=== PATIENT | female | born 1950 | race Caucasian/White ===

== ENCOUNTER 2020-07-15 13:27 | Inpatient (IN) | payer MEDICARE, MEDICAID ==
[~2020-07-15] VITALS: Ht 162.6 cm; Wt 110.3 kg
[2020-07-15 14:11] VITALS: BP 112/77
[2020-07-15] MEDS ORDERED: METHYL SALICYLATE/MENTHOL TOPICAL OINTMENT 57GM TUBE. TP PRN (14:30)
[2020-07-15] MEDS ORDERED: MAG HYDROX/AL HYDROX/SIMETH 30 ML ORAL.SUSP PO PRN ×2 (14:30→17:00)
[2020-07-15] MEDS ORDERED: MAGNESIUM HYDROXIDE 2,400 MG/30 ML ORAL.SUSP. PO PRN (14:30)
--- NOTE | 2020-07-15 14:46 | NUR ---
Admission Note with Justification for [facility] for protective oversight for emergency stabilization of acute psychiatric crisis. Pt admitted from: direct admit from [facility] Mode of arrival: Secure Transport Accompanied By: [facility] Staff Precipitating behaviors that initiated intake and admission: it was reported that patient was yelling out for help, doing less than physically capable, not sleeping, sliding herself to the edge of the chair and putting herself on the floor, making false accusations about intermediate to her guardian over the phone. She has made statements that she wants "to give up". She is verbally abusive and demanding, belligerent and has increased agitation and anxiety. Description of failure of out patient attempts at stabilization in previous setting list behavior and medication trials: patient had been seen by the psychologist social, decreased Lexapro dose, increased Depakote frequency. Behaviors and assessment findings upon admission: patient arrived via facility transportation. She presented in our registration department and appeared about to fall out of her wheelchair. Four [facility] staff members assisted patient back into chair. Clifford lift x3 staff members to transfer patient from wheelchair to bed when she arrived on unit. Broda chair ordered. Patient is very soft spoken; almost a whisper when answering questions. Patient a/o x4. She states she is here "because she got angry". This RN and FRAME BUILDER inspected patients skin. Her matheus area is reddened and damp. Her skin is intact. She is pale, however her face appears red with dry patches. She is morbidly obese (BMI 40.8) and seems to have limited motion (on her right side) in the bed when turning for brief change. (unsure if she truly has limited motion or if it is a behavior). Her face does not appear symmetrical, the right side droops somewhat and she seems weaker on that side of her body. She was observed coughing upon arrival. Patient appears calm, possibly sedated prior to arrival. Facility transportation stated she had not been given anything. Patient stated she had not eaten lunch, box lunch was ordered and served. Vital signs obtained and belongings inventoried. Patient was observed sleeping in bed with the half eaten sandwich on her stomach about 30 minutes after arrival. Plan: Admit for protective oversight for adjustment and stabilization of medications, behaviors and mood. Intense treatment regimen including groups, medication adjustments, therapy, consistent regimen for ADL's, self care, and sleep hygiene. Daily monitoring by Inpatient staff, Psychiatry, and Medical Physician.
[2020-07-15] MEDS ORDERED: ATOR20TA58 PO (16:57)
[2020-07-15] MEDS ORDERED: CALC200T3 PO (16:57)
[2020-07-15] MEDS ORDERED: LORA-254 PO (16:57)
[2020-07-15] MEDS ORDERED: HALO10TA PO (16:57)
[2020-07-15] MEDS ORDERED: GUAI5SYR PO (16:57)
[2020-07-15] MEDS ORDERED: METO50TA6 PO (16:57)
[2020-07-15] MEDS ORDERED: METH113C6 TP (16:57)
[2020-07-15] MEDS ORDERED: PHEN26CR2 RC (16:57)
[2020-07-15] MEDS ORDERED: MAGN24003 PO (16:57)
[2020-07-15] MEDS ORDERED: MAG-111 PO (16:57)
[2020-07-15] MEDS ORDERED: WARF6TAB47 PO (16:57)
[2020-07-15] MEDS ORDERED: HALO5TAB PO (16:57)
[2020-07-15] MEDS ORDERED: DOCU100C28 PO (16:57)
[2020-07-15] MEDS ORDERED: CARB-116 OT (16:57)
[2020-07-15] MEDS ORDERED: OXYB10TA26 PO (16:57)
[2020-07-15] MEDS ORDERED: ONDA-84 PO (16:57)
[2020-07-15] MEDS ORDERED: ESCITALOPRAM OX10 MG PO (16:57)
[2020-07-15] MEDS ORDERED: METF-658 PO (16:57)
[2020-07-15] MEDS ORDERED: TRIA15OI TP (16:57)
[2020-07-15] MEDS ORDERED: DIVA500T2 PO (16:57)
[2020-07-15] MEDS ORDERED: ACET325T9 PO (16:57)
[2020-07-15] MEDS ORDERED: GLYC113C2 TP (16:57)
[2020-07-15] MEDS ORDERED: PEG15DRO4 OU (16:57)
[2020-07-15] MEDS ORDERED: WARFARIN 6 MG TABLET. PO SCH (17:00)
[2020-07-15] MEDS ORDERED: CALCIUM CARBONATE 500 MG TAB.CHEW PO PRN (17:00)
[2020-07-15] MEDS ORDERED: CARBAMIDE PEROXIDE 6.5% OTIC SOLUTION 15ML BOTTLE. AU PRN (17:00)
[2020-07-15] MEDS ORDERED: MENTHOL TP PRN (17:00)
[2020-07-15] MEDS ORDERED: MAGNESIUM HYDROXIDE PO PRN (17:00)
[2020-07-15] MEDS ORDERED: ACETAMINOPHEN 325 MG TABLET PO PRN (17:00)
[2020-07-15] MEDS ORDERED: METHYL SALICYLATE TP PRN (17:00)
[2020-07-15] MEDS ORDERED: guaiFENesin DM 200MG/20MG 10 ML SYRUP PO PRN (17:00)
[2020-07-15] MEDS ORDERED: DOCUSATE SODIUM 100 MG CAPSULE PO PRN (17:00)
[2020-07-15] MEDS ORDERED: TRIAMCINOLONE ACETONIDE 0.1% TOPICAL OINTMENT 15GM TUBE. TP PRN (17:00)
[2020-07-15] MEDS ORDERED: MINERAL OIL/PETROLATUM TOPICAL CREAM 113GM JAR. TP PRN (17:15)
[2020-07-15] MEDS ORDERED: POLYVINYL ALCOHOL/POVIDONE/PF OPHTH SOLUTION DROPERETTE. OU PRN (17:30)
[2020-07-15] MEDS ORDERED: ONDANSETRON ODT 4 MG TAB.RAPDIS PO PRN (17:30)
[2020-07-15] MEDS ORDERED: PHENYLEPH/MINERAL OIL/PETROLAT RECTAL OINTMENT TUBE. RC PRN (17:30)
[2020-07-15] MEDS: LORazepam 1 MG TABLET PO SCH (18:15)
[2020-07-15] MEDS: metFORMIN XR 500 MG TAB.ER.24H PO SCH (18:15)
--- NOTE | 2020-07-15 18:43 | NUR ---
Patient stated she is not full from dinner. 1700 medications given in pudding per patient request. Patient continues to ask for more food. Advised patient that snack will be served on shift boss before bed.
--- NOTE | 2020-07-15 18:46 | NUR ---
Pharmacy is checking PT/INR. They said do not give warfarin, until they advise.
[2020-07-15] MEDS: HALOPERIDOL 5 MG TABLET PO SCH (20:22)
[2020-07-15] MEDS: DIVALPROEX SODIUM 250 MG TABLET.DR. PO SCH (20:22)
[2020-07-15] MEDS: METOPROLOL TART IMMED RELEASE 50 MG TABLET PO SCH (20:22)
[2020-07-15] MEDS: ATORVASTATIN CALCIUM 20 MG TABLET PO SCH (20:22)
[2020-07-15 20:29] LABS: BASO % 0 % (0-3); EOS # 0.1 x10^3/uL (0.0-0.7); EOS % 2 % (0-3); HEMATOCRIT 42.6 % (36.0-47.0); HEMOGLOBIN 13.9 g/dL (12.0-15.5); LYMPH # 3.4 x10^3/uL (1.0-4.8); LYMPH % 52 % (24-48); MEAN CORPUSCULAR HEMOGLOBIN 28 pg (25-35); MEAN CORPUSCULAR HGB CONC 33 g/dL (31-37); MEAN CORPUSCULAR VOLUME 84 fL (79-100); MONO # 0.6 x10^3/uL (0.0-1.1); MONO % 9 % (0-9); NEUT # 2.5 x10^3uL (1.8-7.7); NEUT % 38 % (31-73); PLATELET COUNT 185 x10^3/uL (140-400); RED BLOOD COUNT 5.04 x10^6/uL (3.50-5.40); RED CELL DISTRIBUTION WIDTH 16.5 % (11.5-14.5); WHITE BLOOD COUNT 6.6 x10^3/uL (4.0-11.0)
[2020-07-15 20:38] LABS: ALBUMIN 2.5 g/dL (3.4-5.0); ALBUMIN/GLOBULIN RATIO 0.6 (1.0-1.7); CALCIUM 8.9 mg/dL (8.5-10.1); CREATININE 0.9 mg/dL (0.6-1.0); GFR 62.1; MAGNESIUM 1.6 mg/dL (1.8-2.4); POTASSIUM 3.5 mmol/L (3.5-5.1); TOTAL BILIRUBIN 0.2 mg/dL (0.2-1.0); TOTAL PROTEIN 6.4 g/dL (6.4-8.2)
--- NOTE | 2020-07-15 21:50 | PDOC ---
Exam Note: Win Note: Please also refer to the separate dictated note~for this date of service dictated separately.~Patient seen individually. Discussed the patient with Nursing staff reviewed the chart.~Reviewed interim history and current functioning. Reviewed vital signs,~Labs/ Radiology~and current medications noted below. Continue current treatment with the changes noted in the dictated addendum note Assessment: Vital Signs/I&O: Vital Signs Date Time Temp Pulse Resp B/P (MAP) Pulse Ox O2 Delivery O2 Flow Rate FiO2 07/15/20 21:42 97.9 94 07/15/20 20:22 79 112/77 07/15/20 14:11 17 PRN oxygen Labs: Laboratory Tests Test 07/15/20 20:01 White Blood Count 6.6 x10^3/uL (4.0-11.0) Red Blood Count 5.04 x10^6/uL (3.50-5.40) Hemoglobin 13.9 g/dL (12.0-15.5) Hematocrit 42.6 % (36.0-47.0) Mean Corpuscular Volume 84 fL (79-100) Mean Corpuscular Hemoglobin 28 pg (25-35) Mean Corpuscular Hemoglobin Concent 33 g/dL (31-37) Red Cell Distribution Width 16.5 % (11.5-14.5) H Platelet Count 185 x10^3/uL (140-400) Neutrophils (%) (Auto) 38 % (31-73) Lymphocytes (%) (Auto) 52 % (24-48) H Monocytes (%) (Auto) 9 % (0-9) Eosinophils (%) (Auto) 2 % (0-3) Basophils (%) (Auto) 0 % (0-3) Neutrophils # (Auto) 2.5 x10^3uL (1.8-7.7) Lymphocytes # (Auto) 3.4 x10^3/uL (1.0-4.8) Monocytes # (Auto) 0.6 x10^3/uL (0.0-1.1) Eosinophils # (Auto) 0.1 x10^3/uL (0.0-0.7) Basophils # (Auto) 0.0 x10^3/uL (0.0-0.2) Sodium Level 140 mmol/L (136-145) Potassium Level 3.5 mmol/L (3.5-5.1) Chloride Level 104 mmol/L (98-107) Carbon Dioxide Level 34 mmol/L (21-32) H Anion Gap 2 (6-14) L Blood Urea Nitrogen 16 mg/dL (7-20) Creatinine 0.9 mg/dL (0.6-1.0) Estimated GFR (Cockcroft-Gault) 62.1 BUN/Creatinine Ratio 18 (6-20) Glucose Level 121 mg/dL (70-99) H Calcium Level 8.9 mg/dL (8.5-10.1) Magnesium Level 1.6 mg/dL (1.8-2.4) L Total Bilirubin 0.2 mg/dL (0.2-1.0) Aspartate Amino Transferase (AST) 10 U/L (15-37) L Alanine Aminotransferase (ALT) 11 U/L (14-59) L Alkaline Phosphatase 54 U/L (46-116) Total Protein 6.4 g/dL (6.4-8.2) Albumin 2.5 g/dL (3.4-5.0) L Albumin/Globulin Ratio 0.6 (1.0-1.7) L Current Medications: Meds: Current Medications Medications (Trade) Dose Ordered Sig/Moris Route PRN Reason Start Time Stop Time Status Last Admin Dose Admin Atorvastatin Calcium (Lipitor) 20 mg QHS PO 07/15/20 21:00 07/15/20 20:22 Lorazepam (Ativan) 1 mg BIDWMEALS PO 07/15/20 17:00 07/15/20 18:15 Metformin HCl (Glucophage Xr) 500 mg DAILYWSUP PO 07/15/20 17:00 07/15/20 18:15 Metoprolol Tartrate (Lopressor) 50 mg BID PO 07/15/20 21:00 07/15/20 20:22 Divalproex Sodium (Depakote) 500 mg TID PO 07/15/20 21:00 07/15/20 20:22 Haloperidol (Haldol) 10 mg QHS PO 07/15/20 21:00 07/15/20 20:22 I have reviewed the current psychotropics carefully including drug interactions. Risk benefit ratio favors no change other than as noted in my dictated progress note. Diagnosis: Problems: (1) Schizophrenia, chronic condition with acute exacerbation GAVIN LUCAS MD Jul 15, 2020 21:50
--- NOTE | 2020-07-15 23:14 | NUR ---
Nursing Note: Location of Patient during Assessment: Pt withdrawn to room, lying in bed with eyes closed. Behaviors Mood and Affect this shift: Pt calm and cooperative, speaking in a low whisper but answers questions appropriately. Medication Compliant: Pt compliant with medications administered whole and floated in pudding. Assessment Compliant: Pt cooperative and compliant with assessment and cares. Response After Interventions: Pt calm, lying in bed with eyes closed at this time.
[2020-07-16 07:08] VITALS: BP 111/75
[2020-07-16 07:12] LABS: BACTERIA,URINE FEW /HPF (0-FEW); BILIRUBIN,URINE NEG (NEG); CLARITY,URINE HAZY; COLOR,URINE YELLOW; GLUCOSE,URINE NEG (NEG); NITRITE,URINE NEG (NEG); SQUAMOUS EPITHELIAL CELL,UR FEW /LPF; UROBILINOGEN,URINE 0.2 mg/dL (0.2 mg/dL); WBC,URINE >40 /HPF (0-4)
--- NOTE | 2020-07-16 08:55 | NUR ---
ACTIVITY THERAPY ASSESSMENT completed based on notes, observation, and interview. Pt was asleep in her bed and AT woke pt up. Pt was pleasant with AT and said she would answer questions if AT would sit down. AT sat down and started the assessment. Pt is soft spoken while communicating and at some points starts to fall asleep. Pt was calm, controlled, and pleasant during time of the assessment. Pt said that she likes bingo, cards, archery, and darts. Pt said that she doesn't like reading or coloring. Pt said that she has a son that is 34 and talked about numerous grandchildren. Pt said that her son got on her birthday which was yesterday [birth year]. AT tried asking pt what she likes to do with her family and it this point is was a bit hard to redirect her as she continued to talk about many grandchildren. Pt struggles to collect thoughts but said that she to have family reunions. AT asked what she likes to do with her friends she said that she didn't have any because she has been locked up for years. AT asked where she had been locked up and pt said mental institutions and homes. Pt didn't report any stress at this time and says that she handles it well. AT asked if the pt knew where she was and she said the [facility].' AT then asked why she is here and pt said that it is because she can't walk and falls out of her chair. Pt said that she never falls out of her chair on purpose. Pt was able to identify the year as 2019 and her year of [birth year].Pt said that she came from [facility] before admission. Pt said that she can hear and see okay but just struggles to walk. AT asked if she had anymore to share and she said that she had gotten into an accident where she injured her head and back. Initial goal is aimed to increase time management and self-esteem development skills. Pt will participate in at least two individual Activity Therapy sessions per week.
[2020-07-16 09:17] LABS: VAL ACID 68 mcg/mL (50-100)
[2020-07-16] MEDS: LORazepam 1 MG TABLET PO SCH ×2 (11:13→17:36)
[2020-07-16] MEDS: HALOPERIDOL 5 MG TABLET PO SCH ×3 (11:18→20:34)
[2020-07-16] MEDS: DIVALPROEX SODIUM 250 MG TABLET.DR. PO SCH ×3 (11:19→20:34)
[2020-07-16] MEDS: CITALOPRAM 20 MG TABLET. PO SCH (11:19)
[2020-07-16] MEDS: METOPROLOL TART IMMED RELEASE 50 MG TABLET PO SCH ×2 (11:19→20:35)
[2020-07-16] MEDS: OXYBUTYNIN CHLORIDE 5 MG TABLET PO SCH (11:19)
--- NOTE | 2020-07-16 11:56 | NUR ---
Morning medications were given at 1130 r/t this nurse being in treatment team until then. Will hold 1200 Haldol due to the close proximity of morning dose. Patient demanding (light on, door closed, bed up, bed down, etc.) and acting helpless. compliant with medications given floated in pudding. Held lorazepam r/t patients level of consciousness. She has been drowsy and sleeping most of the morning.
[2020-07-16 14:33] LABS: THYROID STIM HORMONE (TSH) 0.658 uIU/mL (0.358-3.740)
--- NOTE | 2020-07-16 15:24 | NUR ---
Pharmacy Warfarin Dosing Note S:Pharmacy consulted to assist with anticoagulation therapy started with target INR: 2 -3 O:MAHAD AHUJA is a 70 year old F with PRIOR CT/ PROPHYLAXIS LABS: Last INR: 3.7 Last HGB: 13.9 Last HCT: 42.6 Last PLT: 185 Last dose of Hold given on 07/15/20 at 1600 Previous Regimen: Vitamin K given: Drug Interaction Changes: Same Interacting Drug Ongoing Drug Interactions: A:INR Above desired Range. Target Range for this patient is: 2 -3 normally takes 6mg daily at home P: Warfarin dose: Hold Today at 1600 Bridge Therapy: None Next INR due 07/17/20 @ 0600 Pharmacy anticoagulation service will continue to follow. ALL TY [facility], 07/16/20 [id number]
[2020-07-16 16:30] VITALS: BP 113/80
[2020-07-16] MEDS: CHOLECALCIFEROL (VITAMIN D3) 50,000 UNIT CAPSULE PO SCH (17:36)
[2020-07-16] MEDS: metFORMIN XR 500 MG TAB.ER.24H PO SCH (17:36)
[2020-07-16] MEDS: ATORVASTATIN CALCIUM 20 MG TABLET PO SCH (20:34)
[2020-07-16] MEDS: MAGNESIUM OXIDE 400 MG TABLET PO SCH (20:34)
[2020-07-16] MEDS: CLOTRIMAZOLE 1% VAGINAL CREAM 45GM TUBE. VG SCH (20:35)
--- NOTE | 2020-07-16 21:56 | PDOC ---
Exam Note: Win Note: Please also refer to the separate dictated note~for this date of service dictated separately.~Patient seen individually. Discussed the patient with Nursing staff reviewed the chart.~Reviewed interim history and current functioning. Reviewed vital signs,~Labs/ Radiology~and current medications noted below. Continue current treatment with the changes noted in the dictated addendum note Assessment: Vital Signs/I&O: Vital Signs Date Time Temp Pulse Resp B/P (MAP) Pulse Ox O2 Delivery O2 Flow Rate FiO2 07/16/20 20:35 60 113/80 07/16/20 16:30 98.8 20 95 07/15/20 14:11 PRN oxygen I & O 07/15/20 07/15/20 07/16/20 15:00 23:00 07:00 Intake Total 240 ml Balance 240 ml Labs: Laboratory Tests Test 07/16/20 06:20 07/16/20 08:49 Urine Collection Type U cath Urine Color Yellow Urine Clarity Hazy Urine pH 5.5 Urine Specific [place] >=1.030 Urine Protein Neg (NEG-TRACE) Urine Glucose (UA) Neg mg/dL (NEG) Urine Ketones (Stick) Trace mg/dL (NEG) Urine Blood Neg (NEG) Urine Nitrite Neg (NEG) Urine Bilirubin Neg (NEG) Urine Urobilinogen Dipstick 0.2 mg/dL (0.2 mg/dL) Urine Leukocyte Esterase Trace (NEG) Urine RBC 1-2 /HPF (0-2) Urine WBC >40 /HPF (0-4) Urine Squamous Epithelial Cells Few /LPF Urine Transitional Epithelial Cells Few /LPF Urine Bacteria Few /HPF (0-FEW) Urine Mucus Slight /LPF Prothrombin Time 36.4 SEC (9.4-11.4) H Prothrombin Time INR 3.7 (0.9-1.1) H Valproic Acid Level 68 mcg/mL (50-100) Valproic Acid Last Dose Date 07/15/20 Valproic Acid Last Dose Time 2100 Current Medications: Meds: Current Medications Medications (Trade) Dose Ordered Sig/Moris Route PRN Reason Start Time Stop Time Status Last Admin Dose Admin Haloperidol (Haldol) 5 mg 0900,1200 PO 07/16/20 09:00 07/16/20 15:07 DC 07/16/20 11:18 Citalopram Hydrobromide (CeleXA) 20 mg DAILY PO 07/16/20 09:00 07/16/20 11:19 Oxybutynin Chloride (Ditropan) 10 mg DAILY PO 07/16/20 09:00 07/16/20 11:19 Warfarin Sodium (Coumadin Per Pharmacy) 1 each PRN DAILY PRN MC SEE COMMENTS 07/16/20 15:30 07/16/20 15:24 Vitamin D (Vitamin D3) 50,000 unit WEEKLY PO 07/16/20 16:30 07/16/20 17:36 Magnesium Oxide (Magnesium Oxide) 400 mg BID PO 07/16/20 21:00 07/16/20 20:34 Clotrimazole (Mycelex-7) 1 maricarmen HS VG 07/16/20 21:00 07/24/20 21:00 07/16/20 20:35 I have reviewed the current psychotropics carefully including drug interactions. Risk benefit ratio favors no change other than as noted in my dictated progress note. Diagnosis: Problems: (1) Schizophrenia, chronic condition with acute exacerbation GAVIN LUCAS MD Jul 16, 2020 21:56
--- NOTE | 2020-07-16 22:51 | HP ---
ADMIT DATE: 07/15/2020 PSYCHIATRIC ADMISSION HISTORY/EVALUATION This late entry date of service 07/15/2020 covers elements not covered in my initial note. SUBJECTIVE: I met with the patient evening of 07/15/2020 and previously discussed with nursing staff and Araceli Espinoza, international exchange coordinator. IDENTIFYING DATA: The patient is a 70-year-old female referred to us from [facility] by Dr. Dalton Haskins, her primary care physician and JORDEN Chapa psychiatric nurse practitioner on account of an acute exacerbation of her schizoaffective disorder, bipolar type, with psychotic features. The patient reportedly has had marked insomnia. She is yelling out for help repeatedly, physically doing less for herself than she is capable of. She is sliding herself to the edge of the chair and putting herself on the floor. She is making false accusations about facility to her guardian. She is demanding, verbally abusive, agitated, anxious, stated she wants to "give up." The patient has failed outpatient psychiatric interventions. Behaviors deemed dangerous, unmanageable at the facility and referred for inpatient psychiatric stabilization. CHIEF COMPLAINT: "I don't put myself on the floor." The patient was initially talking in whispers, difficult to hear her. Later, she did better. HISTORY OF PRESENT ILLNESS: Reportedly, the patient has a long history of schizoaffective disorder, bipolar type versus schizophrenia, chronic undifferentiated type. She has been treated on Haldol for a period of time and in the past attempt was made to taper this, but she failed significantly. Her guardian has made us aware that she feels the patient has responded very well to Haldol as opposed to any of the other antipsychotics in the past. Recently, she has been more agitated, aggressive, disruptive with mood vacillations as noted above. She has had vague suicidal ideation, no homicidal ideation, worsening mood swings. PAST PSYCHIATRIC HISTORY: As above. MEDICAL HISTORY: Positive for osteoarthritis, dysphagia, hyperlipidemia, history of SC, hypertension, GERD, anemia, chronic respiratory failure, pain in the right hip, frequent falls, abnormal gait, muscle weakness, keratoconjunctivitis sicca, urinary incontinence, chronic constipation, hypertension, morbid obesity. Urine has reflex to culture, result is awaited. ACCU-CHEKS: None. DIET: Dysphagia 3 with chopped meats. CODE STATUS: Full code. ALLERGIES: SEROQUEL, THORAZINE, CAFFEINE, CHLORPROMAZINE. Ambulates in Broda chair and Clifford lift for transfers. Meds she takes them ____ chocolate pudding. CURRENT PSYCHOTROPICS: Celexa 20 mg a day; Haldol 5 mg b.i.d., 10 mg at bedtime; Ativan 1 mg b.i.d.; Depakote 500 mg t.i.d. FAMILY HISTORY: Noncontributory. SOCIAL HISTORY: No history of alcohol, drug abuse, physical, sexual or elder abuse. She is not known to be a perpetrator. REVIEW OF SYSTEMS: Ambulation impaired. No CV, , pulmonary, eye system symptoms on review. MENTAL STATUS EXAMINATION: The patient was seen individually evening of 07/15/2020. She is oriented reasonably. Speech is low in rate and rhythm, low in volume, somewhat better, easier to understand later in the visit. Abstraction fair, computation impaired, language function intact, attention span short. She is quite paranoid, suspicious, somewhat distractable. No active suicidal or homicidal ideation. LABORATORY DATA: Reviewed. IMPRESSION: Schizoaffective disorder, bipolar type, mixed with psychotic features; anxiety disorder, unspecified; impulse control disorder, unspecified. Rest as above. PLAN: Admit to Geropsychiatry Unit at [facility]. I will see the patient daily individually from a psychiatric standpoint. Medical followup per Dr. Sexton/Dr. Parker. Await urine C and S, treat as clinically indicated. The patient seems to have some slight right-sided facial droop, will defer workup to Dr. Sexton. Adjust psychotropics post baseline assessment. ESTIMATED LENGTH OF STAY: 10-12 days. DISPOSITION: Plans back to [facility] when stable. GAVIN LUCAS MD DR: RUBA/ria JOB#: [id number] / [id number]
--- NOTE | 2020-07-16 23:05 | CONS ---
DATE OF CONSULTATION: 07/16/2020 REASON FOR CONSULTATION: Medical management. HISTORY OF PRESENT ILLNESS: The patient is a 70-year-old female patient, a resident at [facility], who was [facility] on account of patient has insomnia. She is yelling out for help, doing less physically than she is capable of, sliding herself up to the edge of the chair and putting herself on the floor, making false accusation about facility to guardian, demanding, verbally abusive, agitated, anxious and has stated that she wants to give up, all this in a background of schizophrenia, chronic with acute exacerbation. PAST MEDICAL HISTORY: Significant for hypertension, hyperlipidemia, myocardial infarction, gastroesophageal reflux disease, anemia, osteoarthritis. She also has chronic respiratory failure, pain in her right hip, recurrent falls, abnormal gait, muscle weakness, dysphagia, keratoconjunctivitis sicca, urinary incontinence, constipation and morbid obesity with a body mass index of 40. PAST SURGICAL HISTORY: Significant for left total knee arthroplasty x 2, arthroscopic surgery on the right knee joint. She also has cholecystectomy and bilateral cataract extraction. ALLERGIES: SHE IS ALLERGIC TO CAFFEINE, CHLORPROMAZINE AND QUETIAPINE. MEDICATIONS: She is currently on following medications: She is on Coumadin 6 mg daily, atorvastatin calcium 20 mg at bedtime, metoprolol tartrate 50 mg twice a day. She is on Tylenol 650 mg every 6 hours, divalproex 500 mg 3 times a day, escitalopram oxalate 10 mg daily, haloperidol 10 mg at bedtime, Haldol 5 mg daily at ____. She is on lorazepam or Ativan 1 mg twice a day. She is on guaifenesin dextromethorphan 10 mL every 4 hours, carbamide peroxide ear drops 1 drop to both ____ twice a day, artificial tears 1 drop to both eyes 4 times a day, calcium carbonate 500 mg daily. She is on Mallika-Lanta liquid 30 mL every 4 hours as needed, Colace 100 mg twice a day, magnesium hydroxide or milk of magnesia 30 mL p.o. daily p.r.n. for constipation, ondansetron 4 mg every 8 hours, metformin 500 mg daily. She is on triamcinolone acetonide cream or ointment apply topically twice a day, Eucerin cream apply topically daily as needed for dry skin, Preparation H cream applied topically 4 times a day and oxybutynin chloride 10 mg daily. FAMILY HISTORY: Noncontributory. SOCIAL HISTORY: She is apparently a resident at [facility]. She stated that she has never smoked. REVIEW OF SYSTEMS: Her main complaint was lumps in her private parts. PHYSICAL EXAMINATION: GENERAL: When I examined her, she was resting slightly propped up in bed, in no apparent respiratory distress. No pallor, jaundice, cyanosis or thyromegaly. No jugular venous distention. No lower limb edema. VITAL SIGNS: Her heart rate was 52, blood pressure was 111/75, temperature 97.4, respiratory rate was 16, and oxygen saturation was 93% on room air. HEAD, EYES, EARS, NOSE AND THROAT: Showed normocephalic, atraumatic. NECK: Supple. HEART: Normal first and second heart sounds. No gallop or murmur. CHEST: Clear to auscultation. No crepitation or rhonchi. ABDOMEN: Distended, soft, nontender. NEUROLOGIC: She is awake, alert, responding appropriately. All her cranial nerves intact. She moves upper extremities ____ lower extremities. She is mostly bedbound. EXTREMITIES: She definitely has scars on both knee joints and what seemed to be fixed flexion contracture to the right knee joint. LABORATORY DATA: Her lab work showed a white cell count of 6600, hemoglobin 13.9, hematocrit 42, MCV 84 and platelet count of 185,000. Her chemistry showed a serum sodium 140, potassium 3.5, chloride 104, bicarbonate 34, anion gap of 2, BUN 16, creatinine 0.9. Estimated GFR was 62 mL per minute. Her glucose was 121, calcium was 8.9, magnesium was 1.6. Serum iron, TIBC and iron saturation are consistent with anemia of chronic disease. Her total bilirubin, AST, ALT, alkaline phosphatase were normal. Total protein was 6.4, albumin was 2.5. Serum triglycerides were 117. Total cholesterol was 110, LDL cholesterol was 48, VLDL was 23, HDL was 39 and cholesterol to HDL cholesterol ratio was 2. Her vitamin B12 was 498 pg/mL, which is well within the normal range. However, 25-hydroxyvitamin D is only 14.9. TSH was 0.658. Her prothrombin time was 36.4, INR of 3.7. Her urinalysis showed that her urine was yellow, hazy with a pH of 5.5, specific gravity of more than 1.030. The urine was negative for protein, glucose. There was trace of ketones, negative for blood and nitrite. There was a trace of leukocyte esterase, 1-2 rbc's, more than 40 wbc's, and very few bacteria. Her toxic screen showed that her valproic acid was 68 mcg/mL, which is well within therapeutic range and her Treponema pallidum antibodies are nonreactive. IMPRESSION: In summary, this is a 70-year-old female patient, a resident from [facility], who was admitted as it was reported that the patient has insomnia. She is yelling out for help, doing less physically than she is capable of, sliding herself to the edge of the chair and putting herself to the floor, making false accusation about facility to guardian, demanding, verbally abusive, agitated, anxious and has stated that she wants to give up. Her past medical history is significant for hypertension, hyperlipidemia, coronary artery disease, status post myocardial infarction, osteoarthritis, dysphagia, chronic obstructive pulmonary disease, chronic respiratory failure, most likely due to morbid obesity and obstructive sleep apnea. She has also dysphagia and keratoconjunctivitis sicca, urinary incontinence, constipation. Her vital signs seem to be stable. Her lab work showed that she has hypoalbuminemia with serum albumin only 2.5. Her 25-hydroxyvitamin D is low at 14.9. She is also on Coumadin and her PT/INR is supratherapeutic at 36.4 and 3.7, although I do not have any clear reason why she is on Coumadin. There is nothing mentioned about DVT, PE, atrial fibrillation or artificial valve. PLAN: My plan is to replenish her vitamin D deficiency. I will probably hold the Coumadin as her INR is clearly supratherapeutic. I will arrange for her to have a CT scan of the head as well as x-rays of both knee joints. I will also start her on Monistat for possible vulvovaginal candidiasis. Thank you, Dr. Cross, for allowing me to participate in the care of this patient. KATELYNN BADILLO MD DR: AC/ria JOB#: [id number] / [id number]
[2020-07-16 23:07] LABS: THYROXINE 6.7 ug/dL (4.5-12.0)
[2020-07-17 02:07] LABS: HEMOGLOBIN A1C 5.5 % (4.8-5.6)
--- NOTE | 2020-07-17 03:37 | NUR ---
Nursing Note The patient has been calm and cooperative this shift. The patient was appropriate during her assessment and medication pass. The patient is currently sleeping in her room.
[2020-07-17 06:26] VITALS: BP 118/77
--- NOTE | 2020-07-17 07:21 | PDOC ---
Exam Note: Win Note: This note is a late entry for 07/16/2020 covers elements not covered in my initial note. Subjective: The patient was evaluated face to face in the morning of 07/16/2020 for treatment team meeting with Sheryl (social service staff), Yanet, activity therapy, and Perri TORRES and was also seen individually in the evening. The patient slept 8-1/4 hours previous night. UA has reflex to culture. Appetite is fair. COVID screen is pending. She often talks in her whispers, seems to have a right facial droop. I will defer workup to Dr. Sexton. At the time of this dictation CT head has been requested amongst other things. Review of Systems: No CV, , pulmonary, eye system symptoms on review. Ambulation impaired. She was lying in bed as I met with her. She has vague somatic symptoms. Mental Status Exam: Reasonably oriented. Speech is low in rate and rhythm, low in volume. Abstraction is fair. Computation is impaired. Language function is intact. Attention span is short. Mood and affect is somewhat labile and anxious. Laboratory Data: Reviewed. Impression: Schizoaffective disorder bipolar type mixed with psychotic features. Anxiety disorder unspecified. Impulse control disorder. Plan: Continue current psychotropics. The patients DPOA has indicated that the only antipsychotic she has done well on is the Haldol. We will increase it from 10 mg h.s. to 5 mg in the morning and 10 mg twice a day. Continue rest unchanged for now. Assessment: Vital Signs/I&O: Vital Signs Date Time Temp Pulse Resp B/P (MAP) Pulse Ox O2 Delivery O2 Flow Rate FiO2 07/17/20 06:26 98.0 56 20 118/77 (91) 94 07/16/20 22:30 Room Air I & O 07/16/20 07/16/20 07/17/20 15:00 23:00 07:00 Intake Total 600 ml 240 ml Balance 600 ml 240 ml Labs: Laboratory Tests Test 07/16/20 08:49 Prothrombin Time 36.4 SEC (9.4-11.4) H Prothrombin Time INR 3.7 (0.9-1.1) H Valproic Acid Level 68 mcg/mL (50-100) Valproic Acid Last Dose Date 07/15/20 Valproic Acid Last Dose Time 2100 Current Medications: Meds: Current Medications Medications (Trade) Dose Ordered Sig/Moris Route PRN Reason Start Time Stop Time Status Last Admin Dose Admin Haloperidol (Haldol) 5 mg 0900,1200 PO 07/16/20 09:00 07/16/20 15:07 DC 07/16/20 11:18 Citalopram Hydrobromide (CeleXA) 20 mg DAILY PO 07/16/20 09:00 07/16/20 11:19 Oxybutynin Chloride (Ditropan) 10 mg DAILY PO 07/16/20 09:00 07/16/20 11:19 Warfarin Sodium (Coumadin Per Pharmacy) 1 each PRN DAILY PRN MC SEE COMMENTS 07/16/20 15:30 07/16/20 15:24 Vitamin D (Vitamin D3) 50,000 unit WEEKLY PO 07/16/20 16:30 07/16/20 17:36 Magnesium Oxide (Magnesium Oxide) 400 mg BID PO 07/16/20 21:00 07/16/20 20:34 Clotrimazole (Mycelex-7) 1 maricarmen HS VG 07/16/20 21:00 07/24/20 21:00 07/16/20 20:35 I have reviewed the current psychotropics carefully including drug interactions. Risk benefit ratio favors no change other than as noted in my dictated progress note. Diagnosis: Problems: (1) Schizoaffective disorder, bipolar type (2) Anxiety disorder, unspecified (3) Impulse control disorder, unspecified (4) Schizophrenia, chronic condition with acute exacerbation GAVIN LUCAS MD Jul 17, 2020 07:21
[2020-07-17] MEDS: MAGNESIUM OXIDE 400 MG TABLET PO SCH ×2 (08:25→20:51)
[2020-07-17] MEDS: LORazepam 1 MG TABLET PO SCH ×2 (08:25→16:10)
[2020-07-17] MEDS: CITALOPRAM 20 MG TABLET. PO SCH (08:25)
[2020-07-17] MEDS: METOPROLOL TART IMMED RELEASE 50 MG TABLET PO SCH ×2 (08:25→20:53)
[2020-07-17] MEDS: HALOPERIDOL 5 MG TABLET PO SCH ×3 (08:26→20:50)
[2020-07-17] MEDS: DIVALPROEX SODIUM 250 MG TABLET.DR. PO SCH ×3 (08:26→20:50)
[2020-07-17] MEDS: OXYBUTYNIN CHLORIDE 5 MG TABLET PO SCH (08:26)
--- NOTE | 2020-07-17 10:30 | NUR ---
Pharmacy Warfarin Dosing Note S:Pharmacy consulted to assist with anticoagulation therapy started with target INR: 2 -3 O:MAHAD AHUJA is a 70 year old F with HX OF [place] LABS: Last INR: 2.4 Last HGB: 13.9 Last HCT: 42.6 Last PLT: 185 Last dose of Hold given on 07/16/20 at 1600 Previous Regimen: Vitamin K given: Drug Interaction Changes: Same Interacting Drug Ongoing Drug Interactions: A:INR Within desired Range. Target Range for this patient is: 2 -3 P: Warfarin dose: 6 mg Today at 1600 Bridge Therapy: None Next INR due 07/18/20 @ 0600 Pharmacy anticoagulation service will continue to follow. [facility], 07/17/20 1034
--- NOTE | 2020-07-17 12:43 | RAD ---
CT scan of the head without contrast 07/17/2020 Clinical History: Right facial droop. Technique: Unenhanced, contiguous, 5 mm axial sections were obtained through the head. One or more of the following individualized dose reduction techniques were utilized for this study: 1. Automated exposure control. 2. Adjustment of the mA and/or kV according to patient size. 3. Use of iterative reconstruction technique. Findings: There is generalized parenchymal atrophy. Areas of decreased attenuation are seen within the periventricular and subcortical white matter of both cerebral hemispheres consistent with areas of small vessel ischemic disease. No acute parenchymal abnormality is seen. No extra-axial fluid collection is noted. No skull fracture is seen. Impression: No acute intracranial abnormality is seen. Electronically signed by: Payam Valderrama MD (07/17/2020 12:40 PM) [id number]
--- NOTE | 2020-07-17 12:44 | RAD ---
EXAM: Chest, single view. HISTORY: Shortness of breath. Wheezing. COMPARISON: None. FINDINGS: A frontal view of the chest is obtained. There is no infiltrate, protrusion or pneumothorax. There is a stable prominent cardiomediastinal silhouette. There is severe degenerative change with associated bony remodeling involving the glenohumeral joints. IMPRESSION: Prominent cardiac mediastinal silhouette. Electronically signed by: Aure Tim MD (07/17/2020 12:41 PM) [facility]
--- NOTE | 2020-07-17 13:00 | NUR ---
PSYCHOSOCIAL ASSESSMENT ADMISSION DATE: 07/15/20 CONTACT INFORMATION: DPOA/Guardian Contact Name: Lara Munoz Contact [address]: [address] [place] [address]; [place] [address] Contact Phone #: ETHNIC ORIGIN: REASONS FOR ADMISSION: Agitated Poor impulse control Sig. Change Sleep ADDITIONAL ADMISSION COMMENTS: According to the intake, pt was experiencing insomnia, doing less than physically capable of, yelling out for help, putting herself on the floor, calling her guardian and reporting false information REASON FOR ADMISSION IN PATIENT/FAMILY'S OWN WORDS: Not new or unusual behaviors are noted. PATIENT/FAMILY EXPECTATIONS FOR ADMISSION: Behavioral management and medication assessment LIVING SITUATION: Patient lives with: Retirement Other living arrangements: Contact Name: [facility] Contact Address: [address] [place] [address]; [place], [place] Contact Phone #: Contact Fax #: FAMILY RELATIONS: Marital Status: Single # of Marriages: 1 # of Children: 2 [facility] Family Support: Involved in DC Planning Additional Comments r/t Family: Pt was to Efe Parker for roughly 10-12 years and then later . Pt has 2 children: Taylor and Matt who stay in contact with their mother as much as possible. SIGNIFICANT PSYCHIATRIC/MEDICAL HISTORY: Psychiatric/Treatment History: This is pt first admission to [facility]. Pt has a previous dx of Schizophrenia, Bipolar D/O and MDD. Pertinent Family History: Pt family history is unknown. HISTORICAL DATA: Childhood Environment: Other-see below Childhood Environment Additional Comments: Pt has been in state care since 2004; unknown about childhood history. Trauma History: Is Trauma: Additional Comments: Unknown Drug Abuse History last 12 months: No Comment: PERSONAL HISTORY: Vocational history: Pt never worked service: N Sikhism background: N/A Sexual orientation: Heterosexual Educational Level: Unknown Past/Present Interests/Hobbies: television, attention and music per the Public District Customs Director Financial support/resources: SS Disability Monthly income: Person handling finances: Pt has a conservator for finances. Do you have a history of legal problems: N Cultural considerations: None noted SOCIAL RELATIONSHIPS-CURRENT/PAST: Psychiatrist: Enrico Fish APRN PCP: Dr. Haskins Counselor/Therapist: None Veterans[employer] Administration: None Support Group: None Whittling Room Operator/Motor Checker: has a Public District Customs Director Other relationships: staff at [facility] STRENGTHS & WEAKNESSES: Patient's strengths: Good family support Approachable Other patient strengths: Patient's weaknesses: Lack of resources Poor relationships Other Other patient weaknesses: lack of information within past history PRELIMINARY PLAN OF TREATMENT: Preliminary plan: Promote Coping Skill Medication Stabilization Dec. Outbursts Other preliminary treatment comments: Improve sleep DISCHARGE PLANNING: Discharge planning/disposition: Current Living Arrange. Additional discharge needs identified: ADDITIONAL INFORMATION: Other Pertinent Data:
--- NOTE | 2020-07-17 14:12 | NUR ---
YINKA contacted pt Public Model Technician, Lara Munoz, to notify her that the unit as of now is on hold as a pt tested as positive; so until we get more direction from the health department, the Behavioral Unit will do no admissions in and no discharges out. We are hopefully to hear back today if not Monday. YINKA will follow up with Lara once next steps has been determined.
--- NOTE | 2020-07-17 15:35 | RAD ---
KNEE BILAT 2V History: Reason: deformity of both knees with difficulty walking / Spl. Instructions: / History: Technique: 2 views bilateral knees. Comparison: None. Findings: Left knee: Left total knee arthroplasty. No significant knee joint effusion. Normal alignment. No fracture. Benign-appearing periosteal reaction along the distal femur, may relate to prior trauma or stress reaction. Vascular calcifications. 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 Extension of intramedullary yamilet through the articular surface into the right knee joint. Multiple fractures of distal screws with fractured screw projecting over the knee joint. There is lucency surrounding the intramedullary yamilet proximally. Advanced right knee degenerative changes. Osteopenia. Vascular calcifications. Impression: 1. 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 2. Left total knee arthroplasty. 3. Benign-appearing periosteal reaction distal left femur, may relate to prior trauma or stress reaction. Electronically signed by: Kailash Simon DO (07/17/2020 3:32 PM) [facility]
[2020-07-17] MEDS ORDERED: WARFARIN 6 MG TABLET. PO ONE (16:00)
[2020-07-17] MEDS: metFORMIN XR 500 MG TAB.ER.24H PO SCH (16:10)
[2020-07-17 16:54] VITALS: BP 136/84
--- NOTE | 2020-07-17 17:15 | NUR ---
Pt up in bed for meals. Has been in pleasant spirits. Compliant with meds and cares. Xray results reported to Dr Sexton. No new orders at this time.
[2020-07-17] MEDS: ATORVASTATIN CALCIUM 20 MG TABLET PO SCH (20:50)
[2020-07-17] MEDS: CLOTRIMAZOLE 1% VAGINAL CREAM 45GM TUBE. VG SCH (20:53)
--- NOTE | 2020-07-17 21:55 | PDOC ---
Exam Note: Win Note: Please also refer to the separate dictated note~for this date of service dictated separately.~Patient seen individually. Discussed the patient with Nursing staff reviewed the chart.~Reviewed interim history and current functioning. Reviewed vital signs,~Labs/ Radiology~and current medications noted below. Continue current treatment with the changes noted in the dictated addendum note Assessment: Vital Signs/I&O: Vital Signs Date Time Temp Pulse Resp B/P (MAP) Pulse Ox O2 Delivery O2 Flow Rate FiO2 07/17/20 20:53 61 136/84 07/17/20 16:54 98.3 16 93 07/17/20 08:27 2.0 07/16/20 22:30 Room Air I & O 07/16/20 07/16/20 07/17/20 15:00 23:00 07:00 Intake Total 600 ml 240 ml Balance 600 ml 240 ml Labs: Laboratory Tests Test 07/17/20 06:47 Prothrombin Time 24.3 SEC (9.4-11.4) H Prothrombin Time INR 2.4 (0.9-1.1) H Current Medications: Meds: Current Medications Medications (Trade) Dose Ordered Sig/Moris Route PRN Reason Start Time Stop Time Status Last Admin Dose Admin Haloperidol (Haldol) 5 mg DAILY PO 07/17/20 09:00 07/17/20 08:26 Haloperidol (Haldol) 10 mg 1200 PO 07/17/20 12:00 07/17/20 12:39 Warfarin Sodium (Coumadin) 6 mg 1X WARF ONCE PO 07/17/20 16:00 07/17/20 16:01 DC 07/17/20 16:00 I have reviewed the current psychotropics carefully including drug interactions. Risk benefit ratio favors no change other than as noted in my dictated progress note. Diagnosis: Problems: (1) Schizophrenia, chronic condition with acute exacerbation (2) Schizoaffective disorder, bipolar type (3) Impulse control disorder, unspecified (4) Anxiety disorder, unspecified GAVIN LUCAS MD Jul 17, 2020 21:55
--- NOTE | 2020-07-18 02:09 | NUR ---
Nursing Note The patient was located in her room laying in bed when approached for her assessment and medication pass. The patient took her medication in chocolate pudding. The patient was cooperative and helpful during her cares and was able to stand and pivot with a 2 person assist. The patient is currently sleeping in her room.
[2020-07-18 05:50] VITALS: BP 113/69
[2020-07-18] MEDS: MAGNESIUM OXIDE 400 MG TABLET PO SCH ×2 (07:54→20:48)
[2020-07-18] MEDS: METOPROLOL TART IMMED RELEASE 50 MG TABLET PO SCH (07:55)
[2020-07-18] MEDS: OXYBUTYNIN CHLORIDE 5 MG TABLET PO SCH (07:55)
[2020-07-18] MEDS: DIVALPROEX SODIUM 250 MG TABLET.DR. PO SCH ×3 (07:55→20:48)
[2020-07-18] MEDS: HALOPERIDOL 5 MG TABLET PO SCH ×3 (07:55→20:48)
[2020-07-18] MEDS: CITALOPRAM 20 MG TABLET. PO SCH (07:56)
[2020-07-18] MEDS: LORazepam 1 MG TABLET PO SCH ×2 (07:58→17:00)
--- NOTE | 2020-07-18 12:28 | NUR ---
Pharmacy Warfarin Dosing Note S:Pharmacy consulted to assist with anticoagulation therapy started with target INR: 2 -3 O:MAHAD AHUJA is a 70 year old F with Atrial Fibrillation, HX OF [place]. LABS: Last INR: 1.6 Last HGB: 13.9 Last HCT: 42.6 Last PLT: 185 Last dose of 6 mg given on 07/16/20 at 1600 Previous Regimen: 6 mg daily Drug Interaction Changes: Same Interacting Drug Ongoing Drug Interactions: CITALOPRAM A: Patient was supratherapeutic at admission on home regimen of 6mg daily. INR today is below desired range with 1 dose held 48 hours ago. Continue home regimen for now and continue to make changes based on followup INR. Target Range for this patient is: 2 -3 P: Warfarin dose: 6 mg Today at 1600 Next INR due 07/19/20 Pharmacy anticoagulation service will continue to follow. ELIJAH MCKINNEY, 07/18/20 [id number]
--- NOTE | 2020-07-18 13:55 | NUR ---
Dr Arshad returned call. No beds available for pt. Pt needs surgery. Senior Drafter notified [facility]. To arrange for transfer there. Spoke with VESTA Calhoun regarding fall and transfer. Unique stated she would notify Dtr. Dr Sexton aware of results and transfer plans.
[2020-07-18 15:48] VITALS: BP 133/84
[2020-07-18] MEDS ORDERED: WARFARIN 6 MG TABLET. PO ONE (16:00)
--- NOTE | 2020-07-18 16:07 | NUR ---
Pt given Morphine x2 for pain. Pt hallucinating at times. Reaching for something in air. Still awaiting for an accepting facility. Pt disloged IV. Will start new one.
--- NOTE | 2020-07-18 16:52 | PN ---
DATE: 07/18/2020 SUBJECTIVE: The patient was seen today as nursing staff stated that her heart rate is slow. We did also multiple imaging studies including x-ray of her knees, CT scan of the head and chest x-ray. PHYSICAL EXAMINATION: GENERAL: On examining her, she looked well and was clearly in no apparent respiratory distress. No pallor, jaundice, cyanosis or thyromegaly. No jugular venous distention. No limb edema. VITAL SIGNS: Her heart rate was 64, blood pressure was 113/69, temperature 97.9, respiratory rate was 18 and oxygen saturation was 95% on 2 liters of oxygen. The rest of clinical exam is stable, has not really changed. IMAGING STUDIES: Her chest x-ray showed that there is no infiltrate, protrusion or pneumothorax. There is stable prominent cardiomediastinal silhouette. There is severe degenerative changes with associated bony remodeling involving the glenohumeral joints. The CT scan of the head showed that there is no acute intracranial abnormality seen. There is generalized parenchymal atrophy, areas of decreased attenuation are seen within the periventricular and subcortical white matter of both cerebral hemispheres consistent with areas of small vessel ischemic disease, no acute parenchymal abnormality seen. No extraaxial fluid collection is noted. No skull fracture is seen. An x-ray of the left knee joint shows she has left total knee arthroplasty with no significant knee joint effusion, normal alignment, no fracture and benign appearing periosteal reaction along the distal femur; however, the right knee showed that she had internal fixation ununited, right mid femur fracture with intramedullary yamilet and extension of the intramedullary yamilet through the articular surface into the right knee joint, multiple fractured distal screws with fractured screws projecting over the knee joint. There is lucency surrounding the intramedullary yamilet proximally advanced the right knee degenerative changes, marked osteopenia and vascular calcification. PLAN: To cut down her metoprolol to 25 mg twice a day. I will consult the orthopedic surgeon to see whether she is a candidate for any further surgical intervention. KATELYNN BADILLO MD DR: AC/ria JOB#: [id number] / [id number]
[2020-07-18] MEDS: metFORMIN XR 500 MG TAB.ER.24H PO SCH (17:00)
[2020-07-18] MEDS: ATORVASTATIN CALCIUM 20 MG TABLET PO SCH (20:49)
[2020-07-18] MEDS: METOPROLOL TART IMMED RELEASE 25 MG TABLET PO SCH (20:52)
[2020-07-18] MEDS: CLOTRIMAZOLE 1% VAGINAL CREAM 45GM TUBE. VG SCH (21:03)
--- NOTE | 2020-07-18 21:54 | PDOC ---
Exam Note: Win Note: Please also refer to the separate dictated note~for this date of service dictated separately.~Patient seen individually. Discussed the patient with Nursing staff reviewed the chart.~Reviewed interim history and current functioning. Reviewed vital signs,~Labs/ Radiology~and current medications noted below. Continue current treatment with the changes noted in the dictated addendum note Assessment: Vital Signs/I&O: Vital Signs Date Time Temp Pulse Resp B/P (MAP) Pulse Ox O2 Delivery O2 Flow Rate FiO2 07/18/20 20:52 56 133/84 07/18/20 15:48 98.2 17 94 Nasal Cannula 1.0 I & O 07/17/20 07/17/20 07/18/20 15:00 23:00 07:00 Intake Total 600 ml 480 ml Balance 600 ml 480 ml Labs: Laboratory Tests Test 07/18/20 08:20 Prothrombin Time 16.0 SEC (9.4-11.4) H Prothrombin Time INR 1.6 (0.9-1.1) H Current Medications: Meds: Current Medications Medications (Trade) Dose Ordered Sig/Moris Route PRN Reason Start Time Stop Time Status Last Admin Dose Admin Warfarin Sodium (Coumadin) 6 mg 1X WARF ONCE PO 07/18/20 16:00 07/18/20 16:01 DC 07/18/20 16:00 Metoprolol Tartrate (Lopressor) 25 mg BID PO 07/18/20 21:00 07/18/20 20:52 I have reviewed the current psychotropics carefully including drug interactions. Risk benefit ratio favors no change other than as noted in my dictated progress note. Diagnosis: Problems: (1) Schizophrenia, chronic condition with acute exacerbation (2) Schizoaffective disorder, bipolar type (3) Impulse control disorder, unspecified (4) Anxiety disorder, unspecified GAVIN LUCAS MD Jul 18, 2020 21:54
--- NOTE | 2020-07-18 23:48 | NUR ---
Nursing Note The patient was calm and cooperative with her assessment and cares. the patient requests that her medication be given floated in chocolate pudding. The patient is currently sleeping in her room.
[2020-07-19 05:44] VITALS: BP 122/67
[2020-07-19] MEDS: OXYBUTYNIN CHLORIDE 5 MG TABLET PO SCH (07:39)
[2020-07-19] MEDS: METOPROLOL TART IMMED RELEASE 25 MG TABLET PO SCH ×2 (07:39→20:30)
[2020-07-19] MEDS: DIVALPROEX SODIUM 250 MG TABLET.DR. PO SCH ×3 (07:39→20:30)
[2020-07-19] MEDS: HALOPERIDOL 5 MG TABLET PO SCH ×3 (07:39→20:29)
[2020-07-19] MEDS: MAGNESIUM OXIDE 400 MG TABLET PO SCH ×2 (07:39→20:29)
[2020-07-19] MEDS: LORazepam 1 MG TABLET PO SCH ×2 (07:42→17:00)
[2020-07-19] MEDS: NYSTATIN TOPICAL POWDER 15GM BOTTLE. TP SCH ×2 (07:42→20:32)
[2020-07-19] MEDS: buPROPion XL 150 MG TAB.ER.24H PO SCH (07:42)
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
[2020-07-19 15:45] VITALS: BP 115/74
[2020-07-19] MEDS ORDERED: WARFARIN 6 MG TABLET. PO ONE (16:00)
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
[2020-07-19] MEDS: metFORMIN XR 500 MG TAB.ER.24H PO SCH (17:00)
[2020-07-19] MEDS: ATORVASTATIN CALCIUM 20 MG TABLET PO SCH (20:29)
[2020-07-19] MEDS: CLOTRIMAZOLE 1% VAGINAL CREAM 45GM TUBE. VG SCH (20:31)
--- NOTE | 2020-07-19 21:59 | PDOC ---
Exam Note: Win Note: Please also refer to the separate dictated note~for this date of service dictated separately.~Patient seen individually. Discussed the patient with Nursing staff reviewed the chart.~Reviewed interim history and current functioning. Reviewed vital signs,~Labs/ Radiology~and current medications noted below. Continue current treatment with the changes noted in the dictated addendum note Assessment: Vital Signs/I&O: Vital Signs Date Time Temp Pulse Resp B/P (MAP) Pulse Ox O2 Delivery O2 Flow Rate FiO2 07/19/20 20:52 97.4 93 Nasal Cannula 2.0 07/19/20 20:30 62 115/74 07/19/20 15:45 16 I & O 0 07/18/20 07/18/20 07/19/20 15:00 23:00 07:00 Intake Total 600 ml 240 ml 240 ml Balance 600 ml 240 ml 240 ml Labs: Laboratory Tests Test 07/19/20 08:50 Prothrombin Time 19.8 SEC (9.4-11.4) H Prothrombin Time INR 2.0 (0.9-1.1) H Current Medications: Meds: Current Medications Medications (Trade) Dose Ordered Sig/Moris Route PRN Reason Start Time Stop Time Status Last Admin Dose Admin Bupropion HCl (Wellbutrin Xl) 150 mg DAILY PO 07/19/20 09:00 07/19/20 07:42 Nystatin (Nystop) 1 maricarmen BID TP 07/19/20 09:00 07/19/20 20:32 Warfarin Sodium (Coumadin) 6 mg 1X WARF ONCE PO 07/19/20 16:00 07/19/20 16:01 DC 07/19/20 16:00 I have reviewed the current psychotropics carefully including drug interactions. Risk benefit ratio favors no change other than as noted in my dictated progress note. Diagnosis: Problems: (1) Schizophrenia, chronic condition with acute exacerbation (2) Schizoaffective disorder, bipolar type (3) Impulse control disorder, unspecified (4) Anxiety disorder, unspecified GAVIN LUCAS MD Jul 19, 2020 21:59
--- NOTE | 2020-07-20 00:45 | NUR ---
Nursing Note The patient was calm and compliant with her assessment and medication pass. The patient took her medication whole. The patient was pleasant during interactions with this nurse. The patient is currently sleeping in her room.
[2020-07-20 05:52] VITALS: BP 109/63
--- NOTE | 2020-07-20 06:56 | PDOC ---
Exam Note: Win Note: This note is a late entry for 07/17/2020 covers elements not covered in my initial note. Subjective: The patient was evaluated on telehealth rounds in the evening of 07/17/2020 with Shilpa nursing aid as one of the patients on the unit has tested positive for COVID-19 and unit is on a lockdown with no admission and discharges. That is the reason I am doing telehealth rounds to minimize any further spread of the infection. Nursing report with Holli TORRES. She slept 6- 3/[address] head done shows atrophy. No acute changes. Overall the patient has been doing better, less agitated, less paranoid. Review of Systems: No CV, , pulmonary, eye system symptoms on review. Ambulation impaired in Broda chair. Mental Status Exam: Reasonably oriented. Speech has some latency, coherent. Abstraction is fair. Computation is impaired. Language function is intact. Mood and affect somewhat withdrawn. Laboratory Data: Reviewed. Impression: Schizoaffective disorder bipolar type mixed with psychotic features. Anxiety disorder unspecified. Impulse control disorder. Plan: Continue current psychotropics. The patient remains on Celexa 20 mg a day, Haldol 5 mg 0900 and 10 mg h.s., Ativan 1 mg b.i.d., Depakote 500 mg t.i.d., level therapeutic at 68. We will make further adjustments on psychotropics as clinically indicated. Consider changing Celexa to Wellbutrin given her diagnosis of schizoaffective disorder, Wellbutrin having much lower tendency to exacerbate any mood swings and manic episodes as compared to the SSRIs. Assessment: Vital Signs/I&O: Vital Signs Date Time Temp Pulse Resp B/P (MAP) Pulse Ox O2 Delivery O2 Flow Rate FiO2 07/20/20 05:52 98.0 60 18 109/63 (78) 93 Nasal Cannula 2.0 I & O 07/19/20 07/19/20 07/20/20 15:00 23:00 07:00 Intake Total 960 ml 480 ml Balance 960 ml 480 ml Labs: Laboratory Tests Test 07/19/20 08:50 Prothrombin Time 19.8 SEC (9.4-11.4) H Prothrombin Time INR 2.0 (0.9-1.1) H Current Medications: Meds: Current Medications Medications (Trade) Dose Ordered Sig/Moris Route PRN Reason Start Time Stop Time Status Last Admin Dose Admin Bupropion HCl (Wellbutrin Xl) 150 mg DAILY PO 07/19/20 09:00 07/19/20 07:42 Nystatin (Nystop) 1 maricarmen BID TP 07/19/20 09:00 07/19/20 20:32 Warfarin Sodium (Coumadin) 6 mg 1X WARF ONCE PO 07/19/20 16:00 07/19/20 16:01 DC 07/19/20 16:00 I have reviewed the current psychotropics carefully including drug interactions. Risk benefit ratio favors no change other than as noted in my dictated progress note. Diagnosis: Problems: (1) Schizophrenia, chronic condition with acute exacerbation (2) Schizoaffective disorder, bipolar type (3) Impulse control disorder, unspecified (4) Anxiety disorder, unspecified GAVIN LUCAS MD Jul 20, 2020 06:55
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
[2020-07-20] MEDS: MAGNESIUM OXIDE 400 MG TABLET PO SCH ×2 (08:08→20:06)
[2020-07-20] MEDS: HALOPERIDOL 5 MG TABLET PO SCH ×3 (08:08→20:06)
[2020-07-20] MEDS: OXYBUTYNIN CHLORIDE 5 MG TABLET PO SCH (08:08)
[2020-07-20] MEDS: buPROPion XL 150 MG TAB.ER.24H PO SCH (08:08)
[2020-07-20] MEDS: DIVALPROEX SODIUM 250 MG TABLET.DR. PO SCH ×3 (08:08→20:06)
[2020-07-20] MEDS: LORazepam 1 MG TABLET PO SCH ×2 (08:08→16:31)
[2020-07-20] MEDS: METOPROLOL TART IMMED RELEASE 25 MG TABLET PO SCH ×2 (08:09→20:06)
[2020-07-20] MEDS: NYSTATIN TOPICAL POWDER 15GM BOTTLE. TP SCH ×2 (08:13→20:07)
--- NOTE | 2020-07-20 09:55 | NUR ---
PATIENT WAS LOCATED IN PT ROOM AT TIME OF ASSESSMENT AND MEDICATION ADMINISTRATION. PATIENT IS PLEASANT AND COOPERATIVE WITH MEDICATIONS WHOLE FLOATED IN PUDDING. PATIENT IS RESTING IN ROOM AT THIS TIME. VS ARE STABLE. WILL CONTINUE TO MONITOR.
--- NOTE | 2020-07-20 12:02 | NUR ---
YINKA contacted Saad at [facility] to let her know that pt is doing well and is very pleasant with all staff interactions. YINKA wanted to follow up to see if anyone spoke to pt Public Accredited Farm Manager about pt knee which appeared completely shatter according to the nurse over the weekend. Saad was not sure about this and wanted to follow up. YINKA also let the placement know that we are currently doing 2 covid test on patients that report not feeling well. YINKA will follow up once results are in and let them know next steps for discharge.
--- NOTE | 2020-07-20 12:24 | NUR ---
Pharmacy Warfarin Dosing Note S:Pharmacy consulted to assist with anticoagulation therapy started with target INR: 2 -3 O:MAHAD AHUJA is a 70 year old F with Atrial Fibrillation HX OF [place] LABS: Last INR: 2.3 Last HGB: 13.9 Last HCT: 42.6 Last PLT: 185 Last dose of 6 mg given on 07/19/20 at 1600 Previous Regimen: Vitamin K given: Drug Interaction Changes: Same Interacting Drug Ongoing Drug Interactions: CITALOPRAM Discontinued citalopram. A:INR Within desired Range. Target Range for this patient is: 2 -3 P: Warfarin dose: 5 mg Today at 1600 Bridge Therapy: None Next INR due Pharmacy anticoagulation service will continue to follow. ALL TY [facility], 07/20/20 0053
[2020-07-20] MEDS ORDERED: WARFARIN 5 MG TABLET. PO ONE (16:00)
[2020-07-20] MEDS: metFORMIN XR 500 MG TAB.ER.24H PO SCH (16:31)
[2020-07-20 16:32] VITALS: BP 109/70
[2020-07-20] MEDS: ATORVASTATIN CALCIUM 20 MG TABLET PO SCH (20:06)
[2020-07-20] MEDS: CLOTRIMAZOLE 1% VAGINAL CREAM 45GM TUBE. VG SCH (20:08)
--- NOTE | 2020-07-20 23:41 | NUR ---
Nursing Note Pt in bed compliant and cooperative, but is demanding at times. States shes feeling ok, her day was fairly boring. Denies complaints.
[2020-07-21 05:58] VITALS: BP 106/66
[2020-07-21 06:20] LABS: BASO % 0 % (0-3); EOS # 0.2 x10^3/uL (0.0-0.7); EOS % 2 % (0-3); HEMATOCRIT 40.9 % (36.0-47.0); HEMOGLOBIN 13.4 g/dL (12.0-15.5); LYMPH # 3.3 x10^3/uL (1.0-4.8); LYMPH % 52 % (24-48); MEAN CORPUSCULAR HEMOGLOBIN 27 pg (25-35); MEAN CORPUSCULAR HGB CONC 33 g/dL (31-37); MEAN CORPUSCULAR VOLUME 84 fL (79-100); MONO # 0.6 x10^3/uL (0.0-1.1); MONO % 9 % (0-9); NEUT # 2.3 x10^3uL (1.8-7.7); NEUT % 37 % (31-73); PLATELET COUNT 167 x10^3/uL (140-400); RED BLOOD COUNT 4.88 x10^6/uL (3.50-5.40); WHITE BLOOD COUNT 6.4 x10^3/uL (4.0-11.0)
[2020-07-21 06:34] LABS: ALBUMIN 2.3 g/dL (3.4-5.0); ALBUMIN/GLOBULIN RATIO 0.6 (1.0-1.7); CREATININE 0.6 mg/dL (0.6-1.0); GFR 99.1; POTASSIUM 4.4 mmol/L (3.5-5.1); TOTAL BILIRUBIN 0.2 mg/dL (0.2-1.0); TOTAL PROTEIN 6.3 g/dL (6.4-8.2)
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
[2020-07-21] MEDS: HALOPERIDOL 5 MG TABLET PO SCH ×3 (08:48→20:04)
[2020-07-21] MEDS: buPROPion XL 150 MG TAB.ER.24H PO SCH (08:48)
[2020-07-21] MEDS: MAGNESIUM OXIDE 400 MG TABLET PO SCH ×2 (08:48→20:05)
[2020-07-21] MEDS: LORazepam 1 MG TABLET PO SCH ×2 (08:48→16:44)
[2020-07-21] MEDS: DIVALPROEX SODIUM 250 MG TABLET.DR. PO SCH ×3 (08:48→20:04)
[2020-07-21] MEDS: OXYBUTYNIN CHLORIDE 5 MG TABLET PO SCH (08:48)
[2020-07-21] MEDS: METOPROLOL TART IMMED RELEASE 25 MG TABLET PO SCH ×2 (08:52→20:05)
[2020-07-21] MEDS: NYSTATIN TOPICAL POWDER 15GM BOTTLE. TP SCH ×2 (08:54→20:05)
--- NOTE | 2020-07-21 11:02 | NUR ---
YINKA contacted Lara Munoz, Public Planning Engineer, to update her on the covoid tests that were completed and to also discuss the fact that the unit will be under quarantine until August 04. YINKA alerted Lara that pt, though x-rays and other scans, has an issue with the yamilet previously placed in her knee; it appears that the yamilet has either shattered or has become dislocated. Lara reports that pt has had procedures at [facility] and wants to see if they would be able to do the procedure there. YINKA will plan to call the health department to check considering the unit is under quarantine and contact all parties with that update.
--- NOTE | 2020-07-21 12:15 | NUR ---
Pharmacy Warfarin Dosing Note S:Pharmacy consulted to assist with anticoagulation therapy started with target INR: 2 -3 O:MAHAD AHUJA is a 70 year old F with Atrial Fibrillation HX OF [place] LABS: Last INR: 3.2 Last HGB: 13.4 Last HCT: 40.9 Last PLT: 167 Last dose of 5 mg given on 07/20/20 at 1600 Previous Regimen: Vitamin K given: N Drug Interaction Changes: Same Interacting Drug Ongoing Drug Interactions: CITALOPRAM Discontinued citalopram. A:INR Above desired Range. Target Range for this patient is: 2 -3 P: Warfarin dose: Hold Today at 1600 Bridge Therapy: None Next INR due 07/22/20 @ 0600 Pharmacy anticoagulation service will continue to follow. ALL TY [facility], 07/21/20 [id number]
--- NOTE | 2020-07-21 12:23 | NUR ---
Nursing note: Pt sitting up in her chair following breakfast when approached for morning med pass and assessment. Pt was very pleasant, compliant with meds floated in pudding, and was cooperative with her assessment. Pt wanted to go back to bed, but she was encouraged to stay up for the rest of the morning, which she was happy to do. Pt had no complaints this morning. She is currently sitting in her room eating lunch. Will continue to monitor.
[2020-07-21 16:13] VITALS: BP 112/73
[2020-07-21] MEDS: metFORMIN XR 500 MG TAB.ER.24H PO SCH (16:44)
[2020-07-21] MEDS: ATORVASTATIN CALCIUM 20 MG TABLET PO SCH (20:04)
[2020-07-21] MEDS: CLOTRIMAZOLE 1% VAGINAL CREAM 45GM TUBE. VG SCH (20:05)
--- NOTE | 2020-07-21 23:43 | NUR ---
Nursing Note Pt pleasant calm and cooperative. Demanding at times, redirects easily. Takes PO meds floated in chocolate pudding.
--- NOTE | 2020-07-22 02:57 | PN ---
DATE: 07/21/2020 SUBJECTIVE: The patient was assessed today on daily rounds, discussed with the staff, reviewed her current medications. Staff reports that the patient is complaining of chronic pain, prior history of falls, currently on wheelchair. The patient currently denies of any major problems. OBSERVATION: VITAL SIGNS: Temperature 98, blood pressure 106/66, pulse 57, respirations 11, O2 sat 95%. Slept about 6-1/2 hours last night. The patient's appetite improved. LABORATORY DATA: The patient's lab reviewed, which are all within normal range. MEDICATIONS: The patient's current medications include bupropion 150 mg daily, Haldol 10 mg at noon and 5 mg daily and also 10 mg at night, Depakote 500 mg t.i.d. p.o. The patient is also on lorazepam 1 mg twice a day. The patient's Depakote level was in the therapeutic range , 68. ASSESSMENT: Schizoaffective disorder, bipolar type, mixed with psychotic features; anxiety disorder and impulse control disorder, unspecified. PLAN: Continue with the current treatment plan. Continue to monitor for any side effects. LENGTH OF STAY: 5 days. DEDIE CABEZAS MD DR: SARIKA/ria JOB#: [id number] / [id number] ARI
[2020-07-22 06:26] VITALS: BP 119/78
[2020-07-22] MEDS: MAGNESIUM OXIDE 400 MG TABLET PO SCH ×2 (08:11→19:37)
[2020-07-22] MEDS: METOPROLOL TART IMMED RELEASE 25 MG TABLET PO SCH ×2 (08:12→19:37)
[2020-07-22] MEDS: DIVALPROEX SODIUM 250 MG TABLET.DR. PO SCH ×3 (08:13→19:37)
[2020-07-22] MEDS: HALOPERIDOL 5 MG TABLET PO SCH ×3 (08:13→19:37)
[2020-07-22] MEDS: buPROPion XL 150 MG TAB.ER.24H PO SCH (08:13)
[2020-07-22] MEDS: NYSTATIN TOPICAL POWDER 15GM BOTTLE. TP SCH ×2 (08:13→19:37)
[2020-07-22] MEDS: OXYBUTYNIN CHLORIDE 5 MG TABLET PO SCH (08:13)
[2020-07-22] MEDS: LORazepam 1 MG TABLET PO SCH ×2 (08:13→16:18)
--- NOTE | 2020-07-22 10:22 | NUR ---
Pharmacy Warfarin Dosing Note S:Pharmacy consulted to assist with anticoagulation therapy started with target INR: 2 -3 O:MAHAD AHUJA is a 70 year old F with Atrial Fibrillation, HX OF [place] LABS: Last INR: 2.8 Last HGB: 13.4 Last HCT: 40.9 Last PLT: 167 Last dose of Hold given on 07/20/20 at 1600 Previous Regimen: 6MG PO DAILY AT HOME Drug Interaction Changes: Same Interacting Drug A:INR Within desired range. Patient was on 6mg daily at home, was supratherapeutic and has continued to raise above range while trying to reinitiate that regimen here. Will restart warfarin today at 1/2 home dose and make adjustments as indicated based on labs. Target Range for this patient is: 2 -3 P: Warfarin dose: 3 mg Today at 1600 Next INR due 07/23 Pharmacy anticoagulation service will continue to follow. ELIJAH MCKINNEY, 07/22/20 [id number]
--- NOTE | 2020-07-22 10:53 | NUR ---
Nursing note: Pt in her room for meds and assessment. Pt compliant with meds whole floated in chocolate pudding and was cooperative with assessment. She was mostly pleasant throughout interaction, but did become slightly demanding shortly after. Pt was informed that she would get a shower as soon as everyone was finished eating breakfast, but fpc through breakfast, she began demanding to have a shower "now!" Pt was encouraged again to wait a little bit longer. Pt has been happy since receiving shower. She is currently asleep in her chair. Will continue to monitor.
--- NOTE | 2020-07-22 14:13 | NUR ---
YINKA sent updates to [place] and pt guardian on pt behaviors. YINKA did note that pt would not be able to discharge for her knee surgery per the health department as it is not an emergency need. YINKA will continue to keep all parties up to date and look at discharge for pt on Monday, .
[2020-07-22 16:00] VITALS: BP 145/93
[2020-07-22] MEDS ORDERED: WARFARIN 3 MG TABLET. PO ONE (16:00)
[2020-07-22] MEDS: metFORMIN XR 500 MG TAB.ER.24H PO SCH (16:18)
[2020-07-22] MEDS: ATORVASTATIN CALCIUM 20 MG TABLET PO SCH (19:37)
[2020-07-22] MEDS: CLOTRIMAZOLE 1% VAGINAL CREAM 45GM TUBE. VG SCH (19:38)
--- NOTE | 2020-07-22 21:42 | PN ---
DATE: 07/22/2020 SUBJECTIVE: The patient was evaluated today by daily rounds, discussed with the staff, reviewed the patient's current medications and labs. Staff reports no major problems. The patient states she slipped out of her chair, but did not hurt. The patient was able to hold a reasonable conversation, still experiencing high level of anxiety. Staff also reports she tends to be demanding, yelling out for help and also putting herself on the floor and also accusing staff. OBSERVATION: VITAL SIGNS: Temperature 98.7, blood pressure 119/78, pulse 52, respirations 18, O2 sat 92%. GENERAL: Slept about 7 hours last night. The patient's appetite improved. LABORATORY DATA: The patient's lab reviewed. MEDICATIONS: Reviewed. Currently on bupropion 150 mg daily; Haldol 10 mg at noon, 5 mg daily and 10 mg at night. She is also on Depakote 500 mg t.i.d. p.o. and lorazepam 1 mg twice a day. The patient's Depakote level was in therapeutic range, 68. Staff reports no major medical issues, no falls. ASSESSMENT: 1. Schizoaffective disorder, bipolar type, mixed, with psychotic features. 2. Anxiety disorder. 3. Impulse control disorder, unspecified. PLAN: Continue with the treatment. The patient is not exhibiting any major side effects to the medications. LENGTH OF STAY: 3-5 days. EDDIE CABEZAS MD DR: SARIKA/ria JOB#: [id number] / [id number]
--- NOTE | 2020-07-22 22:56 | NUR ---
Nursing Note Pt needy and demanding at times. Compliant and cooperative with meds. Is pleasant smiles on approach.
[2020-07-23 06:32] VITALS: BP 108/69
[2020-07-23] MEDS: NYSTATIN TOPICAL POWDER 15GM BOTTLE. TP SCH ×2 (08:51→20:14)
[2020-07-23] MEDS: OXYBUTYNIN CHLORIDE 5 MG TABLET PO SCH (08:52)
[2020-07-23] MEDS: METOPROLOL TART IMMED RELEASE 25 MG TABLET PO SCH ×2 (08:54→20:16)
[2020-07-23] MEDS: LORazepam 1 MG TABLET PO SCH ×2 (08:54→16:53)
[2020-07-23] MEDS: DIVALPROEX SODIUM 250 MG TABLET.DR. PO SCH ×3 (08:54→20:14)
[2020-07-23] MEDS: MAGNESIUM OXIDE 400 MG TABLET PO SCH ×2 (08:54→20:14)
[2020-07-23] MEDS: HALOPERIDOL 5 MG TABLET PO SCH ×3 (08:54→20:14)
[2020-07-23] MEDS: buPROPion XL 150 MG TAB.ER.24H PO SCH (08:54)
[2020-07-23] MEDS: CHOLECALCIFEROL (VITAMIN D3) 50,000 UNIT CAPSULE PO SCH (08:56)
--- NOTE | 2020-07-23 11:33 | NUR ---
Pharmacy Warfarin Dosing Note S:Pharmacy consulted to assist with anticoagulation therapy started with target INR: 2 -3 O:MAHAD AHUJA is a 70 year old F with Atrial Fibrillation, HX OF [place] LABS: Last INR: 1.7 Last HGB: 13.4 Last HCT: 40.9 Last PLT: 167 Last dose of 3 mg given on 07/22/20 at 1600 Previous Regimen: 6mg daily at home Vitamin K given: N Drug Interaction Changes: Same Interacting Drug, [place]. A:INR Below desired range, will increase dose by 1mg and adjust as indicated by labs. Target Range for this patient is: 2 -3 P: Warfarin dose: 4 mg today. Next INR due 07/24 Pharmacy anticoagulation service will continue to follow. ELIJAH MCKINNEY, 07/23/20 1134
--- NOTE | 2020-07-23 11:33 | NUR ---
Nursing note: Pt laying in her bed for AM meds and assessment. She was compliant with meds floated in pudding and cooperative with her assessment. Pt has been needy, but pleasant this morning. She denies pain at this time. Will continue to monitor.
[2020-07-23 15:45] VITALS: BP 115/75
[2020-07-23] MEDS ORDERED: WARFARIN 4 MG TABLET. PO ONE (16:00)
[2020-07-23] MEDS: metFORMIN XR 500 MG TAB.ER.24H PO SCH (16:52)
[2020-07-23] MEDS: ATORVASTATIN CALCIUM 20 MG TABLET PO SCH (20:14)
[2020-07-23] MEDS: CLOTRIMAZOLE 1% VAGINAL CREAM 45GM TUBE. VG SCH (20:14)
[2020-07-23 20:18] VITALS: BP 115/79
--- NOTE | 2020-07-23 22:32 | NUR ---
Nursing Note: Location of Patient during Assessment: Pt lying in bed, sleeping at shift change. Behaviors Mood and Affect this shift: Pt calm, pleasant, cooperative, and interactive when approached. Medication Compliant: Compliant with HS medications administered whole in pudding. Assessment Compliant: Cooperative and compliant with assessment and cares. Response After Interventions: Pt currently resting in bed with eyes closed.
--- NOTE | 2020-07-24 02:54 | PN ---
DATE: 07/23/2020 SUBJECTIVE: The patient was evaluated today by telehealth rounds, discussed with the staff, reviewed the patient's progress, medications and the labs. OBJECTIVE: VITAL SIGNS: Stable. The patient slept over 7-1/2 hours last night. The patient's appetite is fair. MEDICATIONS: The patient's home medications include bupropion 150 mg daily, Haldol 10 mg b.i.d. and 5 mg daily. She is also on Depakote 500 mg t.i.d. p.o. and lorazepam 1 mg twice a day. The patient is not having any major side effects. ASSESSMENT: 1. Schizoaffective disorder, bipolar type, mixed, with psychotic features. 2. Anxiety disorder. 3. Impulse control disorder, unspecified. PLAN: To continue with the treatment and no change with her medications. LENGTH OF STAY: 5 days. EDDIE CABEZAS MD DR: SARIKA/ria JOB#: [id number] / [id number] ARI
[2020-07-24 05:01] VITALS: BP 99/64
[2020-07-24] MEDS: HALOPERIDOL 5 MG TABLET PO SCH ×3 (07:44→20:42)
[2020-07-24] MEDS: MAGNESIUM OXIDE 400 MG TABLET PO SCH ×2 (07:44→20:48)
[2020-07-24] MEDS: OXYBUTYNIN CHLORIDE 5 MG TABLET PO SCH (07:44)
[2020-07-24] MEDS: DIVALPROEX SODIUM 250 MG TABLET.DR. PO SCH ×3 (07:45→20:43)
[2020-07-24] MEDS: buPROPion XL 150 MG TAB.ER.24H PO SCH (07:45)
[2020-07-24] MEDS: LORazepam 1 MG TABLET PO SCH ×2 (07:47→17:00)
[2020-07-24] MEDS: METOPROLOL TART IMMED RELEASE 25 MG TABLET PO SCH ×2 (07:47→20:43)
[2020-07-24] MEDS: NYSTATIN TOPICAL POWDER 15GM BOTTLE. TP SCH ×2 (07:48→20:49)
--- NOTE | 2020-07-24 09:30 | NUR ---
Covid and rapid done and sent to lab.
--- NOTE | 2020-07-24 13:17 | NUR ---
Pt has been pleasant and compliant with meds and cares. Pt up for shower with aide. Tolerated well.
[2020-07-24] MEDS ORDERED: WARFARIN 5 MG TABLET. PO ONE (16:00)
[2020-07-24 16:01] VITALS: BP 119/68
[2020-07-24] MEDS: metFORMIN XR 500 MG TAB.ER.24H PO SCH (17:00)
[2020-07-24 19:35] VITALS: BP 86/60
[2020-07-24] MEDS: ATORVASTATIN CALCIUM 20 MG TABLET PO SCH (20:48)
[2020-07-24] MEDS: CLOTRIMAZOLE 1% VAGINAL CREAM 45GM TUBE. VG SCH (20:48)
--- NOTE | 2020-07-24 21:47 | PN ---
DATE: 07/24/2020 SUBJECTIVE: The patient was evaluated today by telehealth, met with the staff, chart reviewed and also reviewed the patient's current medications. OBSERVATION: VITAL SIGNS: Temperature 97.5, blood pressure 99/64, pulse 54, respirations 18, O2 sat 96%. GENERAL: Slept about 6-1/2 hours last night. The patient's appetite improved. MEDICATIONS: The patient's current medications include bupropion 150 mg daily, Haldol 10 mg b.i.d. and 5 mg daily. She is also on Depakote 500 mg t.i.d. p.o. and lorazepam 1 mg twice a day. The patient is not having any major side effects. The patient continues to complain of chronic pain, also very needy, constantly seeking attention. ASSESSMENT: 1. Schizoaffective disorder, bipolar type, mixed, with psychotic features. 2. Anxiety disorder. 3. Impulse control disorder, unspecified. PLAN: To continue with the treatment. The patient apparently is taking fairly high doses of Haldol. Apparently, her family insisting she needs to stay on the Haldol. They are not agreeable to either decrease or change to other medications. PLAN: Continue with the treatment. LENGTH OF STAY: 5 days. EDDIE CABEZAS MD DR: SARIKA/ria JOB#: [id number] / [id number]
--- NOTE | 2020-07-24 23:10 | NUR ---
Nursing Note The patient was located in her room for her assessment and medication pass. The patient was calm and cooperative with her assessment and medications. The patient took her medication whole floated in chocolate pudding. The patients blood pressure was 86/60this shift and the patient was slightly drowsy during interactions so Haldol, Depakote and metoprolol were held. The patient is currently sleeping in her room.
[2020-07-25 05:59] VITALS: BP 110/73
[2020-07-25] MEDS: buPROPion XL 150 MG TAB.ER.24H PO SCH (07:43)
[2020-07-25] MEDS: DIVALPROEX SODIUM 250 MG TABLET.DR. PO SCH ×3 (07:43→20:41)
[2020-07-25] MEDS: OXYBUTYNIN CHLORIDE 5 MG TABLET PO SCH (07:43)
[2020-07-25] MEDS: METOPROLOL TART IMMED RELEASE 25 MG TABLET PO SCH ×2 (07:43→20:42)
[2020-07-25] MEDS: HALOPERIDOL 5 MG TABLET PO SCH ×3 (07:43→20:41)
[2020-07-25] MEDS: MAGNESIUM OXIDE 400 MG TABLET PO SCH ×2 (07:43→20:42)
[2020-07-25] MEDS: NYSTATIN TOPICAL POWDER 15GM BOTTLE. TP SCH ×2 (07:44→20:42)
[2020-07-25] MEDS: LORazepam 1 MG TABLET PO SCH ×2 (07:45→17:00)
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
[2020-07-25] MEDS ORDERED: WARFARIN 5 MG TABLET. PO ONE (16:00)
[2020-07-25 16:09] VITALS: BP 118/81
--- NOTE | 2020-07-25 16:35 | NUR ---
Pt up in bed for meals. Has been in pleasant spirits. Has been in compliant with meds and cares.
[2020-07-25] MEDS: metFORMIN XR 500 MG TAB.ER.24H PO SCH (17:00)
[2020-07-25] MEDS: ATORVASTATIN CALCIUM 20 MG TABLET PO SCH (20:41)
--- NOTE | 2020-07-25 22:23 | NUR ---
Pt awake in bed this evening. Pt calm and cooperative. Pt states that she feels "silly" because she thought she saw Don Yeyo on the unit and he was here to "yahir the place." Pt realized she was mistaken and was laughing about the comment. Compliant with whole medications floated in chocolate pudding.
[2020-07-26 06:01] VITALS: BP 103/70
[2020-07-26] MEDS: DIVALPROEX SODIUM 250 MG TABLET.DR. PO SCH ×3 (07:37→20:38)
[2020-07-26] MEDS: HALOPERIDOL 5 MG TABLET PO SCH ×3 (07:38→20:40)
[2020-07-26] MEDS: buPROPion XL 150 MG TAB.ER.24H PO SCH (07:38)
[2020-07-26] MEDS: OXYBUTYNIN CHLORIDE 5 MG TABLET PO SCH (07:38)
[2020-07-26] MEDS: NYSTATIN TOPICAL POWDER 15GM BOTTLE. TP SCH ×2 (07:38→20:40)
[2020-07-26] MEDS: MAGNESIUM OXIDE 400 MG TABLET PO SCH ×2 (07:38→20:40)
[2020-07-26] MEDS: METOPROLOL TART IMMED RELEASE 25 MG TABLET PO SCH ×2 (07:38→20:40)
[2020-07-26] MEDS: LORazepam 1 MG TABLET PO SCH ×2 (07:40→17:00)
[2020-07-26 08:12] LABS: BASO % 1 % (0-3); EOS # 0.1 x10^3/uL (0.0-0.7); EOS % 2 % (0-3); HEMATOCRIT 42.3 % (36.0-47.0); LYMPH % 43 % (24-48); MEAN CORPUSCULAR HEMOGLOBIN 28 pg (25-35); MEAN CORPUSCULAR HGB CONC 33 g/dL (31-37); MEAN CORPUSCULAR VOLUME 84 fL (79-100); MONO # 0.7 x10^3/uL (0.0-1.1); MONO % 11 % (0-9); NEUT % 44 % (31-73); PLATELET COUNT 172 x10^3/uL (140-400); RED BLOOD COUNT 5.01 x10^6/uL (3.50-5.40); RED CELL DISTRIBUTION WIDTH 16.3 % (11.5-14.5); WHITE BLOOD COUNT 6.8 x10^3/uL (4.0-11.0)
[2020-07-26 08:29] LABS: ALBUMIN 2.5 g/dL (3.4-5.0); ALBUMIN/GLOBULIN RATIO 0.6 (1.0-1.7); CALCIUM 9.3 mg/dL (8.5-10.1); CREATININE 0.7 mg/dL (0.6-1.0); POTASSIUM 4.4 mmol/L (3.5-5.1); TOTAL BILIRUBIN 0.3 mg/dL (0.2-1.0); TOTAL PROTEIN 6.7 g/dL (6.4-8.2)
--- NOTE | 2020-07-26 08:59 | PN ---
DATE: 07/25/2020 SUBJECTIVE: The patient was evaluated by telehealth rounds, met with the staff, chart reviewed and also covering for Dr. Cross. Staff reports no major behavior problems except for drop in her blood pressure. OBJECTIVE: VITAL SIGNS: Temperature 97.5, blood pressure 110/73, pulse 67, respirations 20, O2 sat 96%. Slept about 7 hours last night. MEDICATIONS: The patient currently on bupropion 150 mg daily, Haldol 10 mg b.i.d. and 5 mg daily. She is also on Depakote 500 mg t.i.d. p.o., lorazepam 1 mg twice a day. She is not having any major side effects. The patient also continued to complain of chronic pain. ASSESSMENT: 1. Schizoaffective disorder, bipolar type, mixed, with psychotic features. 2. Anxiety disorder. 3. Impulse control disorder, unspecified. PLAN: To continue with the treatment. LENGTH OF STAY: 5-7 days. EDDIE CABEZAS MD DR: SARIKA/ria JOB#: [id number] / [id number]
[2020-07-26] MEDS ORDERED: SODIUM CHL/ALOE VERA NASAL GEL 14.1GM TUBE. NS PRN (11:00)
[2020-07-26] MEDS: ACETAMINOPHEN 325 MG TABLET PO PRN (11:02)
--- NOTE | 2020-07-26 11:52 | PN ---
DATE: 07/26/2020 SUBJECTIVE: The patient was evaluated by telehealth rounds, met with the staff, chart reviewed, and covering for Dr. Cross. Staff reports no major problems. OBSERVATION: VITAL SIGNS: Temperature 98.3, blood pressure 103/90, pulse 55, respirations 18. MEDICATIONS: The patient's current medication includes bupropion 150 mg daily, Haldol 10 mg b.i.d. and 5 mg daily, Depakote 500 mg t.i.d., lorazepam 1 mg twice a day. She is not having any side effects. Continues to complain of chronic pain. ASSESSMENT: 1. Schizoaffective disorder, bipolar type, mixed with psychotic features. 2. Anxiety disorder. 3. Impulse control disorder, unspecified. PLAN: To continue with the treatment. LENGTH OF STAY: 5-7 days. EDDIE CABEZAS MD DR: SARIKA/ria JOB#: [id number] / [id number]
--- NOTE | 2020-07-26 12:50 | NUR ---
Pharmacy Warfarin Dosing Note S:Pharmacy consulted to assist with anticoagulation therapy started with target INR: 2 -3 O:MAHAD AHUJA is a 70 year old F with Atrial Fibrillation HX OF [place] LABS: Last INR: 1.8 Last HGB: 14.0 Last HCT: 42.3 Last PLT: 172 Last dose of 5 mg given on 07/25/20 at 1600 Previous Regimen: Vitamin K given: N Drug Interaction Changes: Same Interacting Drug Ongoing Drug Interactions: CITALOPRAM Discontinued citalopram. A:INR Below desired Range. Target Range for this patient is: 2 -3 P: Warfarin dose: 5 mg Today at 1600 Bridge Therapy: None Next INR due 07/27/20 Pharmacy anticoagulation service will continue to follow. SHANA MEYER, 07/26/20 1250
[2020-07-26] MEDS ORDERED: WARFARIN 5 MG TABLET. PO ONE (16:00)
[2020-07-26 16:22] VITALS: BP 109/72
[2020-07-26] MEDS: metFORMIN XR 500 MG TAB.ER.24H PO SCH (17:00)
--- NOTE | 2020-07-26 17:20 | NUR ---
Pt up in bed for mels. Has been compliant with meds nd mark. Up for shower. Tolerated well.
[2020-07-26] MEDS: ATORVASTATIN CALCIUM 20 MG TABLET PO SCH (20:40)
--- NOTE | 2020-07-26 22:37 | NUR ---
Pt has been pleasant and calm this evening. Interactive and compliant with whole medications floated in pudding.
[2020-07-27 05:50] VITALS: BP 106/59
[2020-07-27] MEDS: LORazepam 1 MG TABLET PO SCH ×2 (08:33→16:52)
[2020-07-27] MEDS: buPROPion XL 150 MG TAB.ER.24H PO SCH (08:33)
[2020-07-27] MEDS: METOPROLOL TART IMMED RELEASE 25 MG TABLET PO SCH ×2 (08:34→20:48)
[2020-07-27] MEDS: OXYBUTYNIN CHLORIDE 5 MG TABLET PO SCH (08:35)
[2020-07-27] MEDS: DIVALPROEX SODIUM 250 MG TABLET.DR. PO SCH ×3 (08:35→20:48)
[2020-07-27] MEDS: HALOPERIDOL 5 MG TABLET PO SCH ×3 (08:35→20:48)
[2020-07-27] MEDS: MAGNESIUM OXIDE 400 MG TABLET PO SCH ×2 (08:35→20:48)
[2020-07-27] MEDS: NYSTATIN TOPICAL POWDER 15GM BOTTLE. TP SCH ×2 (08:36→20:48)
--- NOTE | 2020-07-27 09:08 | NUR ---
Pharmacy Warfarin Dosing Note S:Pharmacy consulted to assist with anticoagulation therapy started with target INR: 2 -3 O:MAHAD AHUJA is a 70 year old F with Atrial Fibrillation HX OF [place] LABS: Last INR: 2.0 Last HGB: 14.0 Last HCT: 42.3 Last PLT: 172 Last dose of 5 mg given on 07/25/20 at 1715 Previous Regimen: Vitamin K given: N Drug Interaction Changes: Same Interacting Drug Ongoing Drug Interactions: CITALOPRAM Discontinued citalopram. A:INR Within desired Range. Target Range for this patient is: 2 -3 P: Warfarin dose: 5 mg Today at 1600 Bridge Therapy: None Next INR due 07/28/20 Pharmacy anticoagulation service will continue to follow. SHANA MEYER, 07/27/20 0908
--- NOTE | 2020-07-27 11:19 | NUR ---
Patient awake in bed at shift change. Calm and cooperative with medications and assessment. Denied pain, stating her knee felt better today. Compliant with medications floated in chocolate pudding. Patient conversational and pleasant. Patient's son called this morning and patient stated she was happy to talk to him. No behaviors noted at this time. Will continue to monitor.
[2020-07-27] MEDS ORDERED: WARFARIN 5 MG TABLET. PO ONE (16:00)
[2020-07-27 16:06] VITALS: BP 115/78
[2020-07-27] MEDS: metFORMIN XR 500 MG TAB.ER.24H PO SCH (16:51)
--- NOTE | 2020-07-27 19:41 | PN ---
DATE: 07/27/2020 SUBJECTIVE: The patient was seen today on telehealth rounds and also met with the staff, chart reviewed. Staff reports no major behavior problems except she constantly is asking to go home. OBSERVATION: VITAL SIGNS: Stable. The patient slept 6-1/2 hours last night. The patient's appetite improved. CURRENT MEDICATIONS: Include bupropion 150 mg daily, Haldol 10 mg b.i.d. and 5 mg daily, Depakote 500 mg t.i.d., lorazepam 1 mg twice a day. She is not having any side effects. Continue to complain of chronic pain. ASSESSMENT: 1. Schizoaffective disorder, bipolar type, mixed, with psychotic features. 2. Anxiety disorder. 3. Impulse control disorder, unspecified. PLAN: To continue with the treatment. LENGTH OF STAY: 5-7 days. EDDIE CABEZAS MD DR: SARIKA/ria JOB#: [id number] / [id number]
[2020-07-27] MEDS: ATORVASTATIN CALCIUM 20 MG TABLET PO SCH (20:48)
--- NOTE | 2020-07-27 22:47 | NUR ---
Pt pleasant and calm this evening. Compliant with whole medications floated in ice cream. Interactive and cooperative.
[2020-07-28 05:58] VITALS: BP 104/56
[2020-07-28] MEDS: MAGNESIUM OXIDE 400 MG TABLET PO SCH ×2 (08:47→19:53)
[2020-07-28] MEDS: METOPROLOL TART IMMED RELEASE 25 MG TABLET PO SCH ×2 (08:47→19:53)
[2020-07-28] MEDS: LORazepam 1 MG TABLET PO SCH ×2 (08:47→17:27)
[2020-07-28] MEDS: OXYBUTYNIN CHLORIDE 5 MG TABLET PO SCH (08:47)
[2020-07-28] MEDS: buPROPion XL 150 MG TAB.ER.24H PO SCH (08:47)
[2020-07-28] MEDS: DIVALPROEX SODIUM 250 MG TABLET.DR. PO SCH ×3 (08:47→19:52)
[2020-07-28] MEDS: HALOPERIDOL 5 MG TABLET PO SCH ×3 (08:47→19:53)
[2020-07-28] MEDS: NYSTATIN TOPICAL POWDER 15GM BOTTLE. TP SCH ×2 (08:48→19:52)
--- NOTE | 2020-07-28 09:30 | NUR ---
Pt asleep in bed this morning. Compliant with whole medications floated in pudding. Pleasant and cooperative.
--- NOTE | 2020-07-28 10:16 | NUR ---
Pharmacy Warfarin Dosing Note S:Pharmacy consulted to assist with anticoagulation therapy started with target INR: 2 -3 O:MAHAD AHUJA is a 70 year old F with Atrial Fibrillation, HX OF [place] LABS: Last INR: 1.9 Last HGB: 14.0 Last HCT: 42.3 Last PLT: 172 Last dose of 5 mg given on 07/27/20 at 1652 Previous Regimen: 6mg po daily at home Vitamin K given: N Drug Interaction Changes: Same Interacting Drug A:Patient is consistently supratherapeutic on home regimen of 6mg daily, but hovers from 1.8-2 on 5mg daily. Will start giving 6mg three days/week and 5mg four days/week and monitor INR. P: Warfarin dose: 6 mg Today at 1600 Next INR due: 07/29/20 Pharmacy anticoagulation service will continue to follow. ELIJAH MCKINNEY, 07/28/20 1016
[2020-07-28 15:56] VITALS: BP 93/60
[2020-07-28] MEDS ORDERED: WARFARIN 6 MG TABLET. PO ONE (16:00)
[2020-07-28] MEDS: metFORMIN XR 500 MG TAB.ER.24H PO SCH (17:27)
[2020-07-28 19:42] VITALS: BP 95/64
[2020-07-28] MEDS: ATORVASTATIN CALCIUM 20 MG TABLET PO SCH (19:52)
--- NOTE | 2020-07-28 22:08 | PDOC ---
Exam Note: Win Note: Please also refer to the separate dictated note~for this date of service dictated separately.~Patient seen individually. Discussed the patient with Nursing staff reviewed the chart.~Reviewed interim history and current functioning. Reviewed vital signs,~Labs/ Radiology~and current medications noted below. Continue current treatment with the changes noted in the dictated addendum note Assessment: Vital Signs/I&O: Vital Signs Date Time Temp Pulse Resp B/P (MAP) Pulse Ox O2 Delivery O2 Flow Rate FiO2 07/28/20 19:53 80 95/64 07/28/20 19:42 98.3 20 93 Room Air 07/28/20 05:58 2.0 I & O 07/27/20 07/27/20 07/28/20 15:00 23:00 07:00 Intake Total 480 ml 480 ml Balance 480 ml 480 ml Labs: Laboratory Tests Test 07/28/20 05:50 Prothrombin Time 19.2 SEC (9.4-11.4) H Prothrombin Time INR 1.9 (0.9-1.1) H Current Medications: Meds: Current Medications Medications (Trade) Dose Ordered Sig/Moris Route PRN Reason Start Time Stop Time Status Last Admin Dose Admin Warfarin Sodium (Coumadin) 6 mg 1X WARF ONCE PO 07/28/20 16:00 07/28/20 16:01 DC 07/28/20 17:27 I have reviewed the current psychotropics carefully including drug interactions. Risk benefit ratio favors no change other than as noted in my dictated progress note. Diagnosis: Problems: (1) Schizophrenia, chronic condition with acute exacerbation (2) Schizoaffective disorder, bipolar type (3) Impulse control disorder, unspecified (4) Anxiety disorder, unspecified GAVIN LUCAS MD Jul 28, 2020 22:08
[2020-07-29 06:01] LABS: BASO % 1 % (0-3); EOS # 0.2 x10^3/uL (0.0-0.7); EOS % 3 % (0-3); HEMATOCRIT 42.1 % (36.0-47.0); HEMOGLOBIN 14.1 g/dL (12.0-15.5); LYMPH # 2.9 x10^3/uL (1.0-4.8); LYMPH % 44 % (24-48); MEAN CORPUSCULAR HEMOGLOBIN 28 pg (25-35); MEAN CORPUSCULAR HGB CONC 33 g/dL (31-37); MEAN CORPUSCULAR VOLUME 83 fL (79-100); MONO # 0.7 x10^3/uL (0.0-1.1); MONO % 11 % (0-9); NEUT # 2.7 x10^3uL (1.8-7.7); NEUT % 42 % (31-73); PLATELET COUNT 187 x10^3/uL (140-400); RED BLOOD COUNT 5.05 x10^6/uL (3.50-5.40); RED CELL DISTRIBUTION WIDTH 16.1 % (11.5-14.5); WHITE BLOOD COUNT 6.5 x10^3/uL (4.0-11.0)
[2020-07-29 06:05] VITALS: BP 100/55
[2020-07-29 06:15] LABS: ALBUMIN 2.5 g/dL (3.4-5.0); ALBUMIN/GLOBULIN RATIO 0.6 (1.0-1.7); CALCIUM 9.2 mg/dL (8.5-10.1); CREATININE 0.8 mg/dL (0.6-1.0); GFR 71.1; POTASSIUM 4.4 mmol/L (3.5-5.1); TOTAL BILIRUBIN 0.3 mg/dL (0.2-1.0); TOTAL PROTEIN 6.7 g/dL (6.4-8.2)
[2020-07-29 06:16] LABS: VAL ACID 87 mcg/mL (50-100)
[2020-07-29] MEDS: LORazepam 1 MG TABLET PO SCH ×2 (07:43→15:05)
[2020-07-29] MEDS: DIVALPROEX SODIUM 250 MG TABLET.DR. PO SCH ×3 (07:43→19:40)
[2020-07-29] MEDS: OXYBUTYNIN CHLORIDE 5 MG TABLET PO SCH (07:44)
[2020-07-29] MEDS: HALOPERIDOL 5 MG TABLET PO SCH ×3 (07:44→19:41)
[2020-07-29] MEDS: MAGNESIUM OXIDE 400 MG TABLET PO SCH ×2 (07:44→19:42)
[2020-07-29] MEDS: NYSTATIN TOPICAL POWDER 15GM BOTTLE. TP SCH ×2 (07:44→19:41)
[2020-07-29] MEDS: buPROPion XL 150 MG TAB.ER.24H PO SCH (07:44)
[2020-07-29] MEDS: METOPROLOL TART IMMED RELEASE 25 MG TABLET PO SCH ×2 (07:45→19:41)
--- NOTE | 2020-07-29 10:13 | PDOC ---
Exam Note: Win Note: This note is a late entry for 07/28/2020 covers elements not covered in my initial note. Subjective: The patient was evaluated on telehealth rounds in the evening of 07/28/2020 with [facility] nursing aid. The unit is shut down due to COVID-19 exposure on the unit with no admissions and discharges for now. Dr. Jacome has covered for me for the past several days since I had been on vacation. Reviewed information with Dr. Jacome. Per Jacki TORRES, the patient slept 6-1/4 hours previous night. She has been doing better per nursing report. She has been talking about wanting to leave here and go home. Review of Systems: No CV, , pulmonary, eye, ENT system symptoms on review. Ambulation impaired, needs Clifford lift for transfers. Mental Status Exam: Reasonably oriented. Speech is coherent, has some latency. Abstraction is fair. Computation is impaired. Language function is intact, less psychotic and paranoid, seems to be more coherent, appropriate, and has sense of humor as I met with her. No suicidal or homicidal ideation. Laboratory Data: Reviewed. Impression: Schizoaffective disorder bipolar type mixed with psychotic features. Anxiety disorder unspecified. Impulse control disorder. Plan: Check CBC, CMP, valproic acid level on 07/29. Continue rest psychotropics unchanged. Assessment: Vital Signs/I&O: Vital Signs Date Time Temp Pulse Resp B/P (MAP) Pulse Ox O2 Delivery O2 Flow Rate FiO2 07/29/20 07:45 60 100/55 07/29/20 06:05 97.7 16 96 07/28/20 19:42 Room Air 07/28/20 05:58 2.0 I & O 07/28/20 07/28/20 07/29/20 15:00 23:00 07:00 Intake Total 600 ml 480 ml Balance 600 ml 480 ml Labs: Laboratory Tests Test 07/29/20 05:50 White Blood Count 6.5 x10^3/uL (4.0-11.0) Red Blood Count 5.05 x10^6/uL (3.50-5.40) Hemoglobin 14.1 g/dL (12.0-15.5) Hematocrit 42.1 % (36.0-47.0) Mean Corpuscular Volume 83 fL (79-100) Mean Corpuscular Hemoglobin 28 pg (25-35) Mean Corpuscular Hemoglobin Concent 33 g/dL (31-37) Red Cell Distribution Width 16.1 % (11.5-14.5) H Platelet Count 187 x10^3/uL (140-400) Neutrophils (%) (Auto) 42 % (31-73) Lymphocytes (%) (Auto) 44 % (24-48) Monocytes (%) (Auto) 11 % (0-9) H Eosinophils (%) (Auto) 3 % (0-3) Basophils (%) (Auto) 1 % (0-3) Neutrophils # (Auto) 2.7 x10^3uL (1.8-7.7) Lymphocytes # (Auto) 2.9 x10^3/uL (1.0-4.8) Monocytes # (Auto) 0.7 x10^3/uL (0.0-1.1) Eosinophils # (Auto) 0.2 x10^3/uL (0.0-0.7) Basophils # (Auto) 0.0 x10^3/uL (0.0-0.2) Prothrombin Time 20.6 SEC (9.4-11.4) H Prothrombin Time INR 2.0 (0.9-1.1) H Sodium Level 135 mmol/L (136-145) L Potassium Level 4.4 mmol/L (3.5-5.1) Chloride Level 99 mmol/L (98-107) Carbon Dioxide Level 31 mmol/L (21-32) Anion Gap 5 (6-14) L Blood Urea Nitrogen 16 mg/dL (7-20) Creatinine 0.8 mg/dL (0.6-1.0) Estimated GFR (Cockcroft-Gault) 71.1 BUN/Creatinine Ratio 20 (6-20) Glucose Level 83 mg/dL (70-99) Calcium Level 9.2 mg/dL (8.5-10.1) Total Bilirubin 0.3 mg/dL (0.2-1.0) Aspartate Amino Transferase (AST) 9 U/L (15-37) L Alanine Aminotransferase (ALT) 10 U/L (14-59) L Alkaline Phosphatase 65 U/L (46-116) Total Protein 6.7 g/dL (6.4-8.2) Albumin 2.5 g/dL (3.4-5.0) L Albumin/Globulin Ratio 0.6 (1.0-1.7) L Valproic Acid Level 87 mcg/mL (50-100) Valproic Acid Last Dose Date 07/28/20 Valproic Acid Last Dose Time 2014 Current Medications: Meds: Current Medications Medications (Trade) Dose Ordered Sig/Moris Route PRN Reason Start Time Stop Time Status Last Admin Dose Admin Warfarin Sodium (Coumadin) 6 mg 1X WARF ONCE PO 07/28/20 16:00 07/28/20 16:01 DC 07/28/20 17:27 I have reviewed the current psychotropics carefully including drug interactions. Risk benefit ratio favors no change other than as noted in my dictated progress note. Diagnosis: Problems: (1) Schizophrenia, chronic condition with acute exacerbation (2) Schizoaffective disorder, bipolar type (3) Impulse control disorder, unspecified (4) Anxiety disorder, unspecified GAVIN LUCAS MD Jul 29, 2020 10:13
--- NOTE | 2020-07-29 10:36 | NUR ---
Nursing Note Pt in her bed during assessment. Mostly alert and oriented, takes meds whole states she is tired this am. Pleasant cooperative and compliant. Denies other complaints.
[2020-07-29] MEDS ORDERED: BUPR150T15 PO (13:57)
[2020-07-29] MEDS ORDERED: HALO10TA PO (13:59)
[2020-07-29] MEDS ORDERED: SODI50SP NS (14:03)
[2020-07-29] MEDS ORDERED: NYST15PO9 TP (14:05)
[2020-07-29] MEDS ORDERED: CHOL500021 PO (14:08)
[2020-07-29] MEDS ORDERED: MAGN400T5 PO (14:09)
[2020-07-29] MEDS: metFORMIN XR 500 MG TAB.ER.24H PO SCH (15:05)
[2020-07-29] MEDS ORDERED: WARFARIN 5 MG TABLET. PO ONE (16:00)
[2020-07-29 16:02] VITALS: BP 164/98
[2020-07-29] MEDS: DOCUSATE SODIUM 100 MG CAPSULE PO SCH ×2 (17:30→19:43)
[2020-07-29] MEDS ORDERED: MAGNESIUM CITRATE 296 ML SOLUTION. PO PRN (17:30)
[2020-07-29] MEDS: POLYETHYLENE GLYCOL 3350 17 GM PACKET. PO SCH (17:51)
[2020-07-29 19:38] VITALS: BP 124/77
[2020-07-29] MEDS: ATORVASTATIN CALCIUM 20 MG TABLET PO SCH (19:41)
--- NOTE | 2020-07-29 20:32 | NUR ---
Nursing Note: Location of Patient during Assessment: Pt sitting up in bed, awake at shift change. Behaviors Mood and Affect this shift: Pt calm, pleasant, cooperative, and interactive when approached. Medication Compliant: Compliant with HS medications administered whole in pudding. Assessment Compliant: Cooperative and compliant with assessment and cares. Response After Interventions: Pt currently resting in bed with eyes closed.
--- NOTE | 2020-07-29 21:52 | PDOC ---
Exam Note: Win Note: Please also refer to the separate dictated note~for this date of service dictated separately.~Patient seen individually. Discussed the patient with Nursing staff reviewed the chart.~Reviewed interim history and current functioning. Reviewed vital signs,~Labs/ Radiology~and current medications noted below. Continue current treatment with the changes noted in the dictated addendum note Assessment: Vital Signs/I&O: Vital Signs Date Time Temp Pulse Resp B/P (MAP) Pulse Ox O2 Delivery O2 Flow Rate FiO2 07/29/20 19:45 97.3 91 07/29/20 19:41 77 124/77 07/29/20 19:38 22 Room Air 07/28/20 05:58 2.0 I & O 07/28/20 07/28/20 07/29/20 15:00 23:00 07:00 Intake Total 600 ml 480 ml Balance 600 ml 480 ml Labs: Laboratory Tests Test 07/29/20 05:50 White Blood Count 6.5 x10^3/uL (4.0-11.0) Red Blood Count 5.05 x10^6/uL (3.50-5.40) Hemoglobin 14.1 g/dL (12.0-15.5) Hematocrit 42.1 % (36.0-47.0) Mean Corpuscular Volume 83 fL (79-100) Mean Corpuscular Hemoglobin 28 pg (25-35) Mean Corpuscular Hemoglobin Concent 33 g/dL (31-37) Red Cell Distribution Width 16.1 % (11.5-14.5) H Platelet Count 187 x10^3/uL (140-400) Neutrophils (%) (Auto) 42 % (31-73) Lymphocytes (%) (Auto) 44 % (24-48) Monocytes (%) (Auto) 11 % (0-9) H Eosinophils (%) (Auto) 3 % (0-3) Basophils (%) (Auto) 1 % (0-3) Neutrophils # (Auto) 2.7 x10^3uL (1.8-7.7) Lymphocytes # (Auto) 2.9 x10^3/uL (1.0-4.8) Monocytes # (Auto) 0.7 x10^3/uL (0.0-1.1) Eosinophils # (Auto) 0.2 x10^3/uL (0.0-0.7) Basophils # (Auto) 0.0 x10^3/uL (0.0-0.2) Prothrombin Time 20.6 SEC (9.4-11.4) H Prothrombin Time INR 2.0 (0.9-1.1) H Sodium Level 135 mmol/L (136-145) L Potassium Level 4.4 mmol/L (3.5-5.1) Chloride Level 99 mmol/L (98-107) Carbon Dioxide Level 31 mmol/L (21-32) Anion Gap 5 (6-14) L Blood Urea Nitrogen 16 mg/dL (7-20) Creatinine 0.8 mg/dL (0.6-1.0) Estimated GFR (Cockcroft-Gault) 71.1 BUN/Creatinine Ratio 20 (6-20) Glucose Level 83 mg/dL (70-99) Calcium Level 9.2 mg/dL (8.5-10.1) Total Bilirubin 0.3 mg/dL (0.2-1.0) Aspartate Amino Transferase (AST) 9 U/L (15-37) L Alanine Aminotransferase (ALT) 10 U/L (14-59) L Alkaline Phosphatase 65 U/L (46-116) Total Protein 6.7 g/dL (6.4-8.2) Albumin 2.5 g/dL (3.4-5.0) L Albumin/Globulin Ratio 0.6 (1.0-1.7) L Valproic Acid Level 87 mcg/mL (50-100) Valproic Acid Last Dose Date 07/28/20 Valproic Acid Last Dose Time 2014 Current Medications: Meds: Current Medications Medications (Trade) Dose Ordered Sig/Moris Route PRN Reason Start Time Stop Time Status Last Admin Dose Admin Warfarin Sodium (Coumadin) 5 mg 1X WARF ONCE PO 07/29/20 16:00 07/29/20 16:01 DC 07/29/20 14:49 Docusate Sodium (Colace) 100 mg BID PO 07/29/20 17:30 07/29/20 19:43 Polyethylene Glycol (miraLAX) 17 gm DAILY PO 07/29/20 17:30 07/29/20 17:51 Magnesium Citrate (Citroma) 296 ml PRN Q72HRS PRN PO CONSTIPATION 07/29/20 17:30 07/29/20 17:51 I have reviewed the current psychotropics carefully including drug interactions. Risk benefit ratio favors no change other than as noted in my dictated progress note. Diagnosis: Problems: (1) Schizophrenia, chronic condition with acute exacerbation (2) Schizoaffective disorder, bipolar type (3) Impulse control disorder, unspecified (4) Anxiety disorder, unspecified GAVIN LUCAS MD Jul 29, 2020 21:52
[2020-07-30 05:38] VITALS: BP 121/74
[2020-07-30] MEDS: METOPROLOL TART IMMED RELEASE 25 MG TABLET PO SCH ×2 (07:29→19:53)
[2020-07-30] MEDS: buPROPion XL 150 MG TAB.ER.24H PO SCH (07:29)
[2020-07-30] MEDS: MAGNESIUM OXIDE 400 MG TABLET PO SCH ×2 (07:30→19:53)
[2020-07-30] MEDS: POLYETHYLENE GLYCOL 3350 17 GM PACKET. PO SCH (07:31)
[2020-07-30] MEDS: OXYBUTYNIN CHLORIDE 5 MG TABLET PO SCH (07:31)
[2020-07-30] MEDS: DOCUSATE SODIUM 100 MG CAPSULE PO SCH ×2 (07:31→19:52)
[2020-07-30] MEDS: HALOPERIDOL 5 MG TABLET PO SCH ×3 (07:31→19:52)
[2020-07-30] MEDS: DIVALPROEX SODIUM 250 MG TABLET.DR. PO SCH ×3 (07:31→19:53)
[2020-07-30] MEDS: NYSTATIN TOPICAL POWDER 15GM BOTTLE. TP SCH ×2 (07:31→19:52)
[2020-07-30] MEDS: LORazepam 1 MG TABLET PO SCH ×2 (07:32→16:10)
[2020-07-30] MEDS: CHOLECALCIFEROL (VITAMIN D3) 50,000 UNIT CAPSULE PO SCH (07:37)
[2020-07-30] MEDS ORDERED: SODIUM PHOSPHATES 19/7GM 133 ML ENEMA. PR PRN (09:00)
[2020-07-30] MEDS ORDERED: BISACODYL 10 MG SUPP.RECT PR PRN (09:00)
--- NOTE | 2020-07-30 12:32 | NUR ---
Pharmacy Warfarin Dosing Note S:Pharmacy consulted to assist with anticoagulation therapy started with target INR: 2 -3 O:MAHAD AHUJA is a 70 year old F with Atrial Fibrillation, HX OF [place] LABS: Last INR: 2.6 Last HGB: 14.1 Last HCT: 42.1 Last PLT: 187 Last dose of 5 mg given on 07/29/20 at 1449 Vitamin K given: No Drug Interaction Changes: DC'd Interacting Drug A:INR Within desired Range. Continue with current plan 5mg Hong,M,W,F and 6mg on ,,. Target Range for this patient is: 2 -3 P: Warfarin dose: 6 mg Today at 1600 Next INR due 07/31 Pharmacy anticoagulation service will continue to follow. ELIJAH MCKINNEY, 07/30/20 [id number]
--- NOTE | 2020-07-30 13:57 | NUR ---
Nursing Note Pt in bed complains of constipation, called Dr. Sexton for orders, by the time they were approved the patient had dug out a pile of hard stool with her fingers and moments later had a giant bowel movement. Feeling much better now. Pt alert mostly pleasant and cooperative.
[2020-07-30] MEDS ORDERED: WARFARIN 6 MG TABLET. PO ONE (16:00)
[2020-07-30] MEDS: metFORMIN XR 500 MG TAB.ER.24H PO SCH (16:10)
[2020-07-30 16:13] VITALS: BP 127/77
[2020-07-30] MEDS: ATORVASTATIN CALCIUM 20 MG TABLET PO SCH (19:53)
--- NOTE | 2020-07-30 21:03 | NUR ---
Pt lying in bed awake at shift change. Pt A/O x3, irritable and demanding at times this evening but pleasant and cooperative when approached for medications and assessment. HS medications administered whole in pudding which pt consumed, compliant with assessment.
[2020-07-30 21:40] VITALS: BP 105/65
--- NOTE | 2020-07-30 21:48 | PDOC ---
Exam Note: Win Note: This note is a late entry for 07/29/2020 covers elements not covered in my initial note. Subjective: The patient was evaluated on telehealth rounds in the evening of 07/29/2020 with Perri TORRES. The unit is shut down due to COVID-19 exposure on the unit with no admissions and discharges for now. Per Mary Anne TORRES, the patient slept 7-3/4 hours previous night. Overall the patient has been withdrawn but no clear psychotic symptoms noted. She has had some constipation, defer to Dr. Sexton. Review of Systems: No CV, , pulmonary, eye system symptoms on review. Ambu lation impaired. She is in bed. She does have constipation. Mental Status Exam: Reasonably oriented. She is quite verbal, interactive, appropriate, oriented. She is pleasant, smiling at times. Speech is coherent, has some latency. Abstraction is fair. Computation is impaired. Language function is intact. Mood and affect somewhat withdrawn. She is much less psychotic. No suicidal or homicidal ideation. Laboratory Data: Reviewed. Impression: Schizoaffective disorder bipolar type mixed with psychotic features. Anxiety disorder unspecified. Impulse control disorder. Plan: No change from initial note. Valproic acid level is 68, therapeutic. We have adjusted the Haldol. She is tolerating it well without side effect. Adjust further as clinically indicated. Assessment: Vital Signs/I&O: Vital Signs Date Time Temp Pulse Resp B/P (MAP) Pulse Ox O2 Delivery O2 Flow Rate FiO2 07/30/20 21:40 97.7 63 105/65 (78) 93 Nasal Cannula 2.0 07/30/20 16:13 17 I & O 07/29/20 07/29/20 07/30/20 15:00 23:00 07:00 Intake Total 600 ml 480 ml Balance 600 ml 480 ml Labs: Laboratory Tests Test 07/30/20 09:25 Prothrombin Time 26.0 SEC (9.4-11.4) H Prothrombin Time INR 2.6 (0.9-1.1) H Current Medications: Meds: Current Medications Medications (Trade) Dose Ordered Sig/Moris Route PRN Reason Start Time Stop Time Status Last Admin Dose Admin Warfarin Sodium (Coumadin) 6 mg 1X WARF ONCE PO 07/30/20 16:00 07/30/20 16:01 DC 07/30/20 16:09 I have reviewed the current psychotropics carefully including drug interactions. Risk benefit ratio favors no change other than as noted in my dictated progress note. Diagnosis: Problems: (1) Schizophrenia, chronic condition with acute exacerbation (2) Schizoaffective disorder, bipolar type (3) Impulse control disorder, unspecified (4) Anxiety disorder, unspecified GAVIN LUCAS MD Jul 30, 2020 21:48
--- NOTE | 2020-07-30 21:57 | PDOC ---
Exam Note: Win Note: Please also refer to the separate dictated note~for this date of service dictated separately.~Patient seen individually. Discussed the patient with Nursing staff reviewed the chart.~Reviewed interim history and current functioning. Reviewed vital signs,~Labs/ Radiology~and current medications noted below. Continue current treatment with the changes noted in the dictated addendum note Assessment: Vital Signs/I&O: Vital Signs Date Time Temp Pulse Resp B/P (MAP) Pulse Ox O2 Delivery O2 Flow Rate FiO2 07/30/20 21:40 97.7 63 105/65 (78) 93 Nasal Cannula 2.0 07/30/20 16:13 17 I & O 07/29/20 07/29/20 07/30/20 15:00 23:00 07:00 Intake Total 600 ml 480 ml Balance 600 ml 480 ml Labs: Laboratory Tests Test 07/30/20 09:25 Prothrombin Time 26.0 SEC (9.4-11.4) H Prothrombin Time INR 2.6 (0.9-1.1) H Current Medications: Meds: Current Medications Medications (Trade) Dose Ordered Sig/Moris Route PRN Reason Start Time Stop Time Status Last Admin Dose Admin Warfarin Sodium (Coumadin) 6 mg 1X WARF ONCE PO 07/30/20 16:00 07/30/20 16:01 DC 07/30/20 16:09 I have reviewed the current psychotropics carefully including drug interactions. Risk benefit ratio favors no change other than as noted in my dictated progress note. Diagnosis: Problems: (1) Schizophrenia, chronic condition with acute exacerbation (2) Schizoaffective disorder, bipolar type (3) Impulse control disorder, unspecified (4) Anxiety disorder, unspecified GAVIN LUCAS MD Jul 30, 2020 21:57
[2020-07-31 05:22] VITALS: BP 106/72
[2020-07-31 05:28] LABS: BACTERIA,URINE 0 /HPF (0-FEW); BILIRUBIN,URINE NEG (NEG); CLARITY,URINE HAZY; COLOR,URINE YELLOW; GLUCOSE,URINE NEG (NEG); NITRITE,URINE NEG (NEG); RBC,URINE 0 /HPF (0-2); SQUAMOUS EPITHELIAL CELL,UR FEW /LPF; UROBILINOGEN,URINE 0.2 mg/dL (0.2 mg/dL)
[2020-07-31] MEDS: LORazepam 1 MG TABLET PO SCH ×2 (07:36→16:19)
[2020-07-31] MEDS: DOCUSATE SODIUM 100 MG CAPSULE PO SCH ×2 (07:36→20:41)
[2020-07-31] MEDS: METOPROLOL TART IMMED RELEASE 25 MG TABLET PO SCH ×2 (07:36→20:42)
[2020-07-31] MEDS: NYSTATIN TOPICAL POWDER 15GM BOTTLE. TP SCH ×2 (07:37→20:42)
[2020-07-31] MEDS: MAGNESIUM OXIDE 400 MG TABLET PO SCH ×2 (07:37→20:41)
[2020-07-31] MEDS: POLYETHYLENE GLYCOL 3350 17 GM PACKET. PO SCH (07:37)
[2020-07-31] MEDS: DIVALPROEX SODIUM 250 MG TABLET.DR. PO SCH ×3 (07:37→20:41)
[2020-07-31] MEDS: OXYBUTYNIN CHLORIDE 5 MG TABLET PO SCH (07:37)
[2020-07-31] MEDS: HALOPERIDOL 5 MG TABLET PO SCH ×3 (07:37→20:41)
[2020-07-31] MEDS: buPROPion XL 150 MG TAB.ER.24H PO SCH (07:37)
--- NOTE | 2020-07-31 10:11 | NUR ---
PT IS RESTING IN ROOM IN W/C AT TIME OF ASSESSMENT AND MEDICATION. PATIENT IS PLEASANT AND COOPERATIVE WITH MEDICATIONS WHOLE FLOATED IN PUDDING. PATIENT IS ATTENDING GROUP AT THIS TIME. WILL CONTINUE TO MONITOR.
--- NOTE | 2020-07-31 11:25 | NUR ---
IYNKA attempted to contact pt [facility] Medical Assistant and left a message with the engineering secretary informing her that discharge for pt would be on Monday. The engineering secretary questioned surgery and YINKA informed that because our physician does not have privileges or knows of the surgeon at [facility], pt would need to see her PCP and they can make the surgeon connections. Films of pt knee can be sent. The facility will be alerted of this as well.
--- NOTE | 2020-07-31 11:27 | NUR ---
YINKA contacted Pauly at [facility] to discuss discharge for pt. Pt will look at discharging on Monday and Pauly reports that they will pick pt up. Pauly has also requested that pt have 2 covoid test 24 hours apart. YINKA let her know that pt was swabbed yesterday and will be swabbed today. Once those come in, YINKA will send the results. Meanwhile, YINKA will send over updates and prepare all necessary paperwork for discharge on Monday.
--- NOTE | 2020-07-31 11:50 | NUR ---
[facility] Social Work Discharge Planning Form Patient Name MAHAD AHUJA Admit Date: 07/15/2020 DISCHARGE PLAN Discharge Destination: Pt to discharge back to [facility] Care Assessment: N/A Level II Assessment: N/A Transportation: Pt facility to pick pt up between 10 and 1100 Special Instructions/Notes: Please fax over all discharge medications, discharge orders and discharge summary to the fax numbers listed below. Pt x-rays/scans were discussed with all parties. Pt is to return to [place] and they will reach out to the specialist to discuss pt results and potential for knee reconstructive surgery. ALL FILMS WILL NEED TO BE SEND TO THE FACILITY!! DISCHARGE TO FACILITY Facility: [facility] Address: [address] [place] [id number] Contact Name: Saad [Van Cdl Driver]: Contact Name: Farooq Serrato PCP: Dalton Haskins [employer] Technician: Lara Munoz Address: [address] [place] [address] [phone]
[2020-07-31 15:36] VITALS: BP 159/88
[2020-07-31] MEDS ORDERED: WARFARIN 5 MG TABLET. PO ONE (16:00)
[2020-07-31] MEDS: metFORMIN XR 500 MG TAB.ER.24H PO SCH (16:19)
[2020-07-31] MEDS: ATORVASTATIN CALCIUM 20 MG TABLET PO SCH (20:41)
--- NOTE | 2020-07-31 21:59 | PDOC ---
Exam Note: Win Note: Please also refer to the separate dictated note~for this date of service dictated separately.~Patient seen individually. Discussed the patient with Nursing staff reviewed the chart.~Reviewed interim history and current functioning. Reviewed vital signs,~Labs/ Radiology~and current medications noted below. Continue current treatment with the changes noted in the dictated addendum note Assessment: Vital Signs/I&O: Vital Signs Date Time Temp Pulse Resp B/P (MAP) Pulse Ox O2 Delivery O2 Flow Rate FiO2 07/31/20 21:34 98.3 92 Room Air 07/31/20 20:42 60 159/88 07/31/20 15:36 20 07/31/20 05:22 2.0 I & O 07/30/20 07/30/20 07/31/20 15:00 23:00 07:00 Intake Total 480 ml 460 ml Balance 480 ml 460 ml Labs: Laboratory Tests Test 07/31/20 04:56 07/31/20 06:23 Urine Collection Type U cath Urine Color Yellow Urine Clarity Hazy Urine pH 7.5 Urine Specific [place] 1.020 Urine Protein Neg (NEG-TRACE) Urine Glucose (UA) Neg mg/dL (NEG) Urine Ketones (Stick) Neg mg/dL (NEG) Urine Blood Neg (NEG) Urine Nitrite Neg (NEG) Urine Bilirubin Neg (NEG) Urine Urobilinogen Dipstick 0.2 mg/dL (0.2 mg/dL) Urine Leukocyte Esterase Neg (NEG) Urine RBC 0 /HPF (0-2) Urine WBC 1-4 /HPF (0-4) Urine Squamous Epithelial Cells Few /LPF Urine Transitional Epithelial Cells Few /LPF Urine Bacteria 0 /HPF (0-FEW) Prothrombin Time 25.7 SEC (9.4-11.4) H Prothrombin Time INR 2.6 (0.9-1.1) H Current Medications: Meds: Current Medications Medications (Trade) Dose Ordered Sig/Moris Route PRN Reason Start Time Stop Time Status Last Admin Dose Admin Warfarin Sodium (Coumadin) 5 mg 1X WARF ONCE PO 07/31/20 16:00 07/31/20 16:01 DC 07/31/20 14:58 I have reviewed the current psychotropics carefully including drug interactions. Risk benefit ratio favors no change other than as noted in my dictated progress note. Diagnosis: Problems: (1) Schizophrenia, chronic condition with acute exacerbation (2) Schizoaffective disorder, bipolar type (3) Impulse control disorder, unspecified (4) Anxiety disorder, unspecified GAVIN LUCAS MD Jul 31, 2020 21:59
--- NOTE | 2020-07-31 23:09 | NUR ---
Pt resting in bed this evening. Pt states that she is upset with "the stupid dumb doctor" because he said she could leave and she's still here. Pt compliant with whole medications floated in pudding.
--- NOTE | 2020-07-31 23:17 | PDOC ---
Exam Note: Win Note: This note is a late entry for 07/30/2020 covers elements not covered in my initial note. Subjective: The patient was evaluated on telehealth rounds in the morning of 07/30/2020 with treatment team meeting with Marilu (social insurance specialist), Mary Anne TORRES and [facility] nursing aid. The unit is still on a lockdown due to COVID-19 exposure with no admissions and discharges. Per Mary Anne RN in the evening, the patient slept 8-1/2 hours previous night. She has been somewhat constipated, has been digging herself out. Apparently she has not walked for about [address] Sexton will be deciding whether she transitions to [facility] facility for orthopaedic for consideration of further corrective surgery or not. Review of Systems: No CV, , pulmonary, eye system symptoms on review. Ambulation impaired with Broda chair, Clifford transfers. Mental Status Exam: Reasonably oriented. She is quite pleasant, verbal, interactive, appreciative of my visit with her. Speech is coherent, has some latency. Abstraction is fair. Computation is impaired. Language function is intact. Mood and affect somewhat withdrawn. She is much less psychotic. No suicidal or homicidal ideation. Laboratory Data: Reviewed. Impression: Schizoaffective disorder bipolar type mixed with psychotic features. Anxiety disorder unspecified. Impulse control disorder. Plan: No change from initial note. Valproic acid level is 87, therapeutic. Maintain Wellbutrin along with increased Haldol, Ativan and Depakote. Assessment: Vital Signs/I&O: Vital Signs Date Time Temp Pulse Resp B/P (MAP) Pulse Ox O2 Delivery O2 Flow Rate FiO2 07/31/20 21:34 98.3 92 Room Air 07/31/20 20:42 60 159/88 07/31/20 15:36 20 07/31/20 05:22 2.0 I & O 07/30/20 07/30/20 07/31/20 15:00 23:00 07:00 Intake Total 480 ml 460 ml Balance 480 ml 460 ml Labs: Laboratory Tests Test 07/31/20 04:56 07/31/20 06:23 Urine Collection Type U cath Urine Color Yellow Urine Clarity Hazy Urine pH 7.5 Urine Specific [place] 1.020 Urine Protein Neg (NEG-TRACE) Urine Glucose (UA) Neg mg/dL (NEG) Urine Ketones (Stick) Neg mg/dL (NEG) Urine Blood Neg (NEG) Urine Nitrite Neg (NEG) Urine Bilirubin Neg (NEG) Urine Urobilinogen Dipstick 0.2 mg/dL (0.2 mg/dL) Urine Leukocyte Esterase Neg (NEG) Urine RBC 0 /HPF (0-2) Urine WBC 1-4 /HPF (0-4) Urine Squamous Epithelial Cells Few /LPF Urine Transitional Epithelial Cells Few /LPF Urine Bacteria 0 /HPF (0-FEW) Prothrombin Time 25.7 SEC (9.4-11.4) H Prothrombin Time INR 2.6 (0.9-1.1) H Current Medications: Meds: Current Medications Medications (Trade) Dose Ordered Sig/Moris Route PRN Reason Start Time Stop Time Status Last Admin Dose Admin Warfarin Sodium (Coumadin) 5 mg 1X WARF ONCE PO 07/31/20 16:00 07/31/20 16:01 DC 07/31/20 14:58 I have reviewed the current psychotropics carefully including drug interactions. Risk benefit ratio favors no change other than as noted in my dictated progress note. Diagnosis: Problems: (1) Schizophrenia, chronic condition with acute exacerbation (2) Schizoaffective disorder, bipolar type (3) Impulse control disorder, unspecified (4) Anxiety disorder, unspecified GAVIN LUCAS MD Jul 31, 2020 23:17
[2020-08-01 05:47] VITALS: BP 105/67
[2020-08-01] MEDS: POLYETHYLENE GLYCOL 3350 17 GM PACKET. PO SCH (08:05)
[2020-08-01] MEDS: DIVALPROEX SODIUM 250 MG TABLET.DR. PO SCH ×3 (08:05→20:28)
[2020-08-01] MEDS: DOCUSATE SODIUM 100 MG CAPSULE PO SCH ×2 (08:05→20:28)
[2020-08-01] MEDS: OXYBUTYNIN CHLORIDE 5 MG TABLET PO SCH (08:06)
[2020-08-01] MEDS: METOPROLOL TART IMMED RELEASE 25 MG TABLET PO SCH ×2 (08:06→20:29)
[2020-08-01] MEDS: HALOPERIDOL 5 MG TABLET PO SCH ×3 (08:06→20:29)
[2020-08-01] MEDS: NYSTATIN TOPICAL POWDER 15GM BOTTLE. TP SCH ×2 (08:06→20:28)
[2020-08-01] MEDS: MAGNESIUM OXIDE 400 MG TABLET PO SCH ×2 (08:06→20:30)
[2020-08-01] MEDS: buPROPion XL 150 MG TAB.ER.24H PO SCH (08:06)
[2020-08-01] MEDS: LORazepam 1 MG TABLET PO SCH ×2 (08:07→16:55)
--- NOTE | 2020-08-01 09:18 | NUR ---
Patient calm and compliant. Patient appears to enjoy taking her shower. Patient has no further needs at this time.
[2020-08-01 15:59] VITALS: BP 146/88
[2020-08-01] MEDS ORDERED: WARFARIN 6 MG TABLET. PO ONE (16:00)
[2020-08-01] MEDS: metFORMIN XR 500 MG TAB.ER.24H PO SCH (16:55)
[2020-08-01] MEDS: ATORVASTATIN CALCIUM 20 MG TABLET PO SCH (20:28)
--- NOTE | 2020-08-01 21:50 | PDOC ---
Exam Note: Win Note: Please also refer to the separate dictated note~for this date of service dictated separately.~Patient seen individually. Discussed the patient with Nursing staff reviewed the chart.~Reviewed interim history and current functioning. Reviewed vital signs,~Labs/ Radiology~and current medications noted below. Continue current treatment with the changes noted in the dictated addendum note Assessment: Vital Signs/I&O: Vital Signs Date Time Temp Pulse Resp B/P (MAP) Pulse Ox O2 Delivery O2 Flow Rate FiO2 08/01/20 20:29 69 146/88 08/01/20 15:59 98.1 18 93 Room Air 08/01/20 05:47 2.0 I & O 07/31/20 07/31/20 08/01/20 15:00 23:00 07:00 Intake Total 431 ml 640 ml Balance 431 ml 640 ml Labs: Laboratory Tests Test 08/01/20 07:15 Prothrombin Time 21.3 SEC (9.4-11.4) H Prothrombin Time INR 2.1 (0.9-1.1) H Current Medications: Meds: Current Medications Medications (Trade) Dose Ordered Sig/Moris Route PRN Reason Start Time Stop Time Status Last Admin Dose Admin Warfarin Sodium (Coumadin) 6 mg 1X WARF ONCE PO 08/01/20 16:00 08/01/20 16:01 DC 08/01/20 16:55 I have reviewed the current psychotropics carefully including drug interactions. Risk benefit ratio favors no change other than as noted in my dictated progress note. Diagnosis: Problems: (1) Schizophrenia, chronic condition with acute exacerbation (2) Schizoaffective disorder, bipolar type (3) Impulse control disorder, unspecified (4) Anxiety disorder, unspecified GAVIN LUCAS MD Aug 01, 2020 21:50
--- NOTE | 2020-08-01 22:00 | NUR ---
Patient is in her room on assumption of care, awake in bed. She is in pleasant spirits. Compliant with assessments and medications taken whole floated in pudding. Cooperative with HS care. Polite and interactive. No agitation. Denies any pain or discomfort. Patient appears to be sleeping comfortably at present time. Will continue to monitor.
[2020-08-02 06:24] VITALS: BP 103/67
--- NOTE | 2020-08-02 06:33 | PDOC ---
Exam Note: Win Note: This note is a late entry for 07/31/2020 covers elements not covered in my initial note. Subjective: The patient was evaluated on telehealth rounds in the evening of 07/31/2020 with [facility] nursing aid. The unit is shut down due to COVID-19 exposure on the unit with no admissions and discharges per Department of Health directives. Per Mary Anne RN in the evening, the patient slept 8-1/2 hours previous night. Overall the patient has been doing better. She remains somewhat withdrawn, less delusional. Nevertheless as I met with her on telehealth rounds, she was talking about wanting to go home to take care of her babies. Review of Systems: No CV, , pulmonary, eye system symptoms on review. Ambulation impaired. Reliability fair. Mental Status Exam: Reasonably oriented. She was verbally interactive, somewhat anxious, little delusional about wanting to go home to take care of babies but was able to distract her from this. Speech is coherent, has some latency. Abstraction is fair. Computation is impaired. Language function is intact. Mood and affect somewhat withdrawn. She is much less psychotic. No suicidal or homicidal ideation. Laboratory Data: Reviewed. Impression: Schizoaffective disorder bipolar type mixed with psychotic features. Anxiety disorder unspecified. Impulse control disorder. Plan: No change from initial note. We have increased the Haldol and she seems to be responding positively to this. Valproic acid level is therapeutic at 87. He remains on Wellbutrin along with scheduled Ativan. Adjust further as clinically indicated. Assessment: Vital Signs/I&O: Vital Signs Date Time Temp Pulse Resp B/P (MAP) Pulse Ox O2 Delivery O2 Flow Rate FiO2 08/02/20 06:24 97.8 52 18 103/67 (79) 94 Nasal Cannula 2.0 I & O 08/01/20 08/01/20 08/02/20 14:59 22:59 06:59 Intake Total 600 ml 360 ml 540 ml Balance 600 ml 360 ml 540 ml Labs: Laboratory Tests Test 08/01/20 07:15 Prothrombin Time 21.3 SEC (9.4-11.4) H Prothrombin Time INR 2.1 (0.9-1.1) H Current Medications: Meds: Current Medications Medications (Trade) Dose Ordered Sig/Moris Route PRN Reason Start Time Stop Time Status Last Admin Dose Admin Warfarin Sodium (Coumadin) 6 mg 1X WARF ONCE PO 08/01/20 16:00 08/01/20 16:01 DC 08/01/20 16:55 I have reviewed the current psychotropics carefully including drug interactions. Risk benefit ratio favors no change other than as noted in my dictated progress note. Diagnosis: Problems: (1) Schizophrenia, chronic condition with acute exacerbation (2) Schizoaffective disorder, bipolar type (3) Impulse control disorder, unspecified (4) Anxiety disorder, unspecified GAVIN LUCAS MD Aug 02, 2020 06:33
--- NOTE | 2020-08-02 06:44 | PDOC ---
Exam Note: Win Note: This note is a late entry for 08/01/2020 covers elements not covered in my initial note. Subjective: The patient was evaluated on telehealth rounds in the evening of 08/01/2020 with [facility]on TRORES. The unit is shut down due to COVID-19 exposure on the unit with no admissions and discharges per Department of Health directives. Per Trenton RN in the evening, the patient slept 7 hours previous night. Review of Systems: No CV, , pulmonary, eye system symptoms on review. Ambulation impaired. Reliability fair. Mental Status Exam: Reasonably oriented. She is interactive, delusional, less psychotic. Speech is coherent, has some latency. Abstraction is fair. Computation is impaired. Language function is intact. Mood and affect somewhat withdrawn. No suicidal or homicidal ideation. Laboratory Data: Reviewed. Impression: Schizoaffective disorder bipolar type mixed with psychotic features. Anxiety disorder unspecified. Impulse control disorder. Plan: No change from initial note. Assessment: Vital Signs/I&O: Vital Signs Date Time Temp Pulse Resp B/P (MAP) Pulse Ox O2 Delivery O2 Flow Rate FiO2 08/02/20 06:24 97.8 52 18 103/67 (79) 94 Nasal Cannula 2.0 I & O 08/01/20 08/01/20 08/02/20 15:00 23:00 07:00 Intake Total 600 ml 360 ml 540 ml Balance 600 ml 360 ml 540 ml Labs: Laboratory Tests Test 08/01/20 07:15 Prothrombin Time 21.3 SEC (9.4-11.4) H Prothrombin Time INR 2.1 (0.9-1.1) H Current Medications: Meds: Current Medications Medications (Trade) Dose Ordered Sig/Moris Route PRN Reason Start Time Stop Time Status Last Admin Dose Admin Warfarin Sodium (Coumadin) 6 mg 1X WARF ONCE PO 08/01/20 16:00 08/01/20 16:01 DC 08/01/20 16:55 I have reviewed the current psychotropics carefully including drug interactions. Risk benefit ratio favors no change other than as noted in my dictated progress note. Diagnosis: Problems: (1) Schizophrenia, chronic condition with acute exacerbation (2) Schizoaffective disorder, bipolar type (3) Impulse control disorder, unspecified (4) Anxiety disorder, unspecified GAVIN LUCAS MD Aug 02, 2020 06:44
[2020-08-02] MEDS: OXYBUTYNIN CHLORIDE 5 MG TABLET PO SCH (08:03)
[2020-08-02] MEDS: DIVALPROEX SODIUM 250 MG TABLET.DR. PO SCH ×3 (08:03→20:30)
[2020-08-02] MEDS: DOCUSATE SODIUM 100 MG CAPSULE PO SCH ×2 (08:03→20:29)
[2020-08-02] MEDS: LORazepam 1 MG TABLET PO SCH ×2 (08:03→17:16)
[2020-08-02] MEDS: MAGNESIUM OXIDE 400 MG TABLET PO SCH ×2 (08:04→20:30)
[2020-08-02] MEDS: METOPROLOL TART IMMED RELEASE 25 MG TABLET PO SCH ×2 (08:04→20:31)
[2020-08-02] MEDS: HALOPERIDOL 5 MG TABLET PO SCH ×3 (08:04→20:30)
[2020-08-02] MEDS: POLYETHYLENE GLYCOL 3350 17 GM PACKET. PO SCH (08:04)
[2020-08-02] MEDS: buPROPion XL 150 MG TAB.ER.24H PO SCH (08:04)
[2020-08-02] MEDS: NYSTATIN TOPICAL POWDER 15GM BOTTLE. TP SCH ×2 (08:05→20:29)
--- NOTE | 2020-08-02 09:34 | NUR ---
Patient calm and compliant.Patient has no further needs at this time.
--- NOTE | 2020-08-02 11:18 | NUR ---
Pharmacy Warfarin Dosing Note S:Pharmacy consulted to assist with anticoagulation therapy started with target INR: 2 -3 O:MAHAD AHUJA is a 70 year old F with Atrial Fibrillation HX OF [place] LABS: Last INR: 1.7 Last HGB: 14.1 Last HCT: 42.1 Last PLT: 187 Last dose of 6 mg given on 08/01/20 at 1600 Previous Regimen: Vitamin K given: N Drug Interaction Changes: Same Interacting Drug Ongoing Drug Interactions: CITALOPRAM Discontinued citalopram. A:INR Below desired Range. Target Range for this patient is: 2 -3 P: Warfarin dose: 5 mg Today at 1600 Bridge Therapy: None Next INR due 08/03/20 @ 0600 Pharmacy anticoagulation service will continue to follow. ALL TY RP, 08/02/20 1111
[2020-08-02 16:00] VITALS: BP 118/75
[2020-08-02] MEDS ORDERED: WARFARIN 5 MG TABLET. PO ONE (16:00)
[2020-08-02] MEDS: metFORMIN XR 500 MG TAB.ER.24H PO SCH (17:15)
[2020-08-02] MEDS: ATORVASTATIN CALCIUM 20 MG TABLET PO SCH (20:31)
--- NOTE | 2020-08-02 21:52 | PDOC ---
Exam Note: Win Note: Please also refer to the separate dictated note~for this date of service dictated separately.~Patient seen individually. Discussed the patient with Nursing staff reviewed the chart.~Reviewed interim history and current functioning. Reviewed vital signs,~Labs/ Radiology~and current medications noted below. Continue current treatment with the changes noted in the dictated addendum note Assessment: Vital Signs/I&O: Vital Signs Date Time Temp Pulse Resp B/P (MAP) Pulse Ox O2 Delivery O2 Flow Rate FiO2 08/02/20 20:31 72 118/75 08/02/20 20:22 98.1 93 2.0 08/02/20 16:00 19 08/02/20 06:24 Nasal Cannula I & O 08/01/20 08/01/20 08/02/20 15:00 23:00 07:00 Intake Total 600 ml 360 ml 540 ml Balance 600 ml 360 ml 540 ml Labs: Laboratory Tests Test 08/02/20 06:25 Prothrombin Time 16.9 SEC (9.4-11.4) H Prothrombin Time INR 1.7 (0.9-1.1) H Current Medications: Meds: Current Medications Medications (Trade) Dose Ordered Sig/Moris Route PRN Reason Start Time Stop Time Status Last Admin Dose Admin Warfarin Sodium (Coumadin) 5 mg 1X WARF ONCE PO 08/02/20 16:00 08/02/20 16:02 DC 08/02/20 17:16 I have reviewed the current psychotropics carefully including drug interactions. Risk benefit ratio favors no change other than as noted in my dictated progress note. Diagnosis: Problems: (1) Schizophrenia, chronic condition with acute exacerbation (2) Schizoaffective disorder, bipolar type (3) Impulse control disorder, unspecified (4) Anxiety disorder, unspecified GAVIN LUCAS MD Aug 02, 2020 21:52
[2020-08-03 05:44] VITALS: BP 126/74
[2020-08-03 08:08] LABS: BASO # 0.1 x10^3/uL (0.0-0.2); BASO % 1 % (0-3); EOS # 0.2 x10^3/uL (0.0-0.7); EOS % 3 % (0-3); HEMATOCRIT 41.7 % (36.0-47.0); HEMOGLOBIN 13.5 g/dL (12.0-15.5); LYMPH # 3.1 x10^3/uL (1.0-4.8); LYMPH % 45 % (24-48); MEAN CORPUSCULAR HEMOGLOBIN 27 pg (25-35); MEAN CORPUSCULAR HGB CONC 33 g/dL (31-37); MEAN CORPUSCULAR VOLUME 84 fL (79-100); MONO # 0.7 x10^3/uL (0.0-1.1); MONO % 10 % (0-9); NEUT # 2.9 x10^3uL (1.8-7.7); NEUT % 42 % (31-73); PLATELET COUNT 205 x10^3/uL (140-400); RED BLOOD COUNT 4.95 x10^6/uL (3.50-5.40); RED CELL DISTRIBUTION WIDTH 16.4 % (11.5-14.5); WHITE BLOOD COUNT 6.9 x10^3/uL (4.0-11.0)
[2020-08-03 08:19] LABS: ALBUMIN 2.5 g/dL (3.4-5.0); ALBUMIN/GLOBULIN RATIO 0.6 (1.0-1.7); CALCIUM 9.1 mg/dL (8.5-10.1); CREATININE 0.7 mg/dL (0.6-1.0); POTASSIUM 4.5 mmol/L (3.5-5.1); TOTAL BILIRUBIN 0.2 mg/dL (0.2-1.0); TOTAL PROTEIN 6.5 g/dL (6.4-8.2)
[2020-08-03] MEDS: OXYBUTYNIN CHLORIDE 5 MG TABLET PO SCH (08:52)
[2020-08-03] MEDS: HALOPERIDOL 5 MG TABLET PO SCH ×3 (08:52→20:13)
[2020-08-03] MEDS: LORazepam 1 MG TABLET PO SCH ×2 (08:52→16:59)
[2020-08-03] MEDS: DIVALPROEX SODIUM 250 MG TABLET.DR. PO SCH ×3 (08:52→20:13)
[2020-08-03] MEDS: DOCUSATE SODIUM 100 MG CAPSULE PO SCH ×2 (08:52→20:13)
[2020-08-03] MEDS: buPROPion XL 150 MG TAB.ER.24H PO SCH (08:53)
[2020-08-03] MEDS: MAGNESIUM OXIDE 400 MG TABLET PO SCH ×2 (08:53→20:14)
[2020-08-03] MEDS: NYSTATIN TOPICAL POWDER 15GM BOTTLE. TP SCH ×2 (08:53→20:14)
[2020-08-03] MEDS: METOPROLOL TART IMMED RELEASE 25 MG TABLET PO SCH ×2 (08:53→20:14)
[2020-08-03] MEDS: POLYETHYLENE GLYCOL 3350 17 GM PACKET. PO SCH (09:00)
--- NOTE | 2020-08-03 11:06 | NUR ---
Pt is calm, cooperative and compliant. No agitation, no aggression, no hallucinations, no delusions. She is compliant with her medications and assessment.
--- NOTE | 2020-08-03 12:49 | NUR ---
Pharmacy Warfarin Dosing Note S:Pharmacy consulted to assist with anticoagulation therapy started with target INR: 2 -3 O:MAHAD AHUJA is a 70 year old F with Atrial Fibrillation HX OF [place] LABS: Last INR: 1.7 Last HGB: 13.5 Last HCT: 41.7 Last PLT: 187 Last dose of 5 mg given on 08/02/20 at 1600 Previous Regimen: Vitamin K given: N Drug Interaction Changes: Same Interacting Drug Ongoing Drug Interactions: CITALOPRAM Discontinued citalopram. A:INR Below desired Range. Target Range for this patient is: 2 -3 P: Warfarin dose: 5 mg Today at 1600 Bridge Therapy: None Next INR due 08/04/20 @ 0600 Pharmacy anticoagulation service will continue to follow. ALL TY RPH, 08/03/20 [id number]
[2020-08-03] MEDS ORDERED: WARFARIN 5 MG TABLET. PO ONE (16:00)
[2020-08-03] MEDS: metFORMIN XR 500 MG TAB.ER.24H PO SCH (16:59)
[2020-08-03 18:36] VITALS: BP 121/78
[2020-08-03] MEDS: ATORVASTATIN CALCIUM 20 MG TABLET PO SCH (20:14)
--- NOTE | 2020-08-03 21:50 | NUR ---
PT calm and cooperative with assessment and medications. Medications were floated in chocolate pudding.
--- NOTE | 2020-08-03 22:13 | PDOC ---
Exam Note: Win Note: Please also refer to the separate dictated note~for this date of service dictated separately.~Patient seen individually. Discussed the patient with Nursing staff reviewed the chart.~Reviewed interim history and current functioning. Reviewed vital signs,~Labs/ Radiology~and current medications noted below. Continue current treatment with the changes noted in the dictated addendum note Assessment: Vital Signs/I&O: Vital Signs Date Time Temp Pulse Resp B/P (MAP) Pulse Ox O2 Delivery O2 Flow Rate FiO2 08/03/20 21:27 97.8 93 08/03/20 20:14 70 121/78 08/03/20 18:36 17 08/03/20 05:44 2.0 08/02/20 06:24 Nasal Cannula I & O 08/02/20 08/02/20 08/03/20 15:00 23:00 07:00 Intake Total 240 ml 720 ml Balance 240 ml 720 ml Labs: Laboratory Tests Test 08/03/20 06:07 White Blood Count 6.9 x10^3/uL (4.0-11.0) Red Blood Count 4.95 x10^6/uL (3.50-5.40) Hemoglobin 13.5 g/dL (12.0-15.5) Hematocrit 41.7 % (36.0-47.0) Mean Corpuscular Volume 84 fL (79-100) Mean Corpuscular Hemoglobin 27 pg (25-35) Mean Corpuscular Hemoglobin Concent 33 g/dL (31-37) Red Cell Distribution Width 16.4 % (11.5-14.5) H Platelet Count 205 x10^3/uL (140-400) Neutrophils (%) (Auto) 42 % (31-73) Lymphocytes (%) (Auto) 45 % (24-48) Monocytes (%) (Auto) 10 % (0-9) H Eosinophils (%) (Auto) 3 % (0-3) Basophils (%) (Auto) 1 % (0-3) Neutrophils # (Auto) 2.9 x10^3uL (1.8-7.7) Lymphocytes # (Auto) 3.1 x10^3/uL (1.0-4.8) Monocytes # (Auto) 0.7 x10^3/uL (0.0-1.1) Eosinophils # (Auto) 0.2 x10^3/uL (0.0-0.7) Basophils # (Auto) 0.1 x10^3/uL (0.0-0.2) Prothrombin Time 17.1 SEC (9.4-11.4) H Prothrombin Time INR 1.7 (0.9-1.1) H Sodium Level 135 mmol/L (136-145) L Potassium Level 4.5 mmol/L (3.5-5.1) Chloride Level 100 mmol/L (98-107) Carbon Dioxide Level 33 mmol/L (21-32) H Anion Gap 2 (6-14) L Blood Urea Nitrogen 18 mg/dL (7-20) Creatinine 0.7 mg/dL (0.6-1.0) Estimated GFR (Cockcroft-Gault) 83.0 BUN/Creatinine Ratio 26 (6-20) H Glucose Level 84 mg/dL (70-99) Calcium Level 9.1 mg/dL (8.5-10.1) Total Bilirubin 0.2 mg/dL (0.2-1.0) Aspartate Amino Transferase (AST) 8 U/L (15-37) L Alanine Aminotransferase (ALT) 10 U/L (14-59) L Alkaline Phosphatase 64 U/L (46-116) Total Protein 6.5 g/dL (6.4-8.2) Albumin 2.5 g/dL (3.4-5.0) L Albumin/Globulin Ratio 0.6 (1.0-1.7) L Current Medications: Meds: Current Medications Medications (Trade) Dose Ordered Sig/Moris Route PRN Reason Start Time Stop Time Status Last Admin Dose Admin Warfarin Sodium (Coumadin) 5 mg 1X WARF ONCE PO 08/03/20 16:00 08/03/20 16:01 DC 08/03/20 16:59 I have reviewed the current psychotropics carefully including drug interactions. Risk benefit ratio favors no change other than as noted in my dictated progress note. Diagnosis: Problems: (1) Schizophrenia, chronic condition with acute exacerbation (2) Schizoaffective disorder, bipolar type (3) Impulse control disorder, unspecified (4) Anxiety disorder, unspecified GAVIN LUCAS MD Aug 03, 2020 22:13
[2020-08-04 05:44] VITALS: BP 112/72
[2020-08-04] MEDS: METOPROLOL TART IMMED RELEASE 25 MG TABLET PO SCH ×2 (09:00→20:18)
[2020-08-04] MEDS: POLYETHYLENE GLYCOL 3350 17 GM PACKET. PO SCH (09:16)
[2020-08-04] MEDS: HALOPERIDOL 5 MG TABLET PO SCH ×3 (09:18→20:18)
[2020-08-04] MEDS: buPROPion XL 150 MG TAB.ER.24H PO SCH (09:18)
[2020-08-04] MEDS: DOCUSATE SODIUM 100 MG CAPSULE PO SCH ×2 (09:19→20:17)
[2020-08-04] MEDS: OXYBUTYNIN CHLORIDE 5 MG TABLET PO SCH (09:19)
[2020-08-04] MEDS: MAGNESIUM OXIDE 400 MG TABLET PO SCH ×2 (09:19→20:18)
[2020-08-04] MEDS: DIVALPROEX SODIUM 250 MG TABLET.DR. PO SCH ×3 (09:20→20:17)
[2020-08-04] MEDS: NYSTATIN TOPICAL POWDER 15GM BOTTLE. TP SCH ×2 (09:23→20:18)
[2020-08-04] MEDS: LORazepam 1 MG TABLET PO SCH ×2 (09:24→16:53)
--- NOTE | 2020-08-04 11:08 | NUR ---
Nursing note: Pt in her bed sleeping when approached for morning meds and assessment. She was easily woken and was pleasant, compliant with meds whole floated in pudding, and cooperative with assessment. Pt denied pain at that time. Pt is drowsy this morning. She has remained in bed and has been sleeping since breakfast. Will continue to monitor.
--- NOTE | 2020-08-04 12:58 | NUR ---
YINKA contacted Pauly at [facility] and informed her that pt would be able to discharge this week in the event that all staff are tested and receive negative tests. Pauly reminded YINKA that regardless of negative test. They will need 2 negative tests within 24 hours of one another. YINKA will update Pauly on with a discharge of Monday.
--- NOTE | 2020-08-04 14:29 | NUR ---
Pharmacy Warfarin Dosing Note S:Pharmacy consulted to assist with anticoagulation therapy started with target INR: 2 -3 O:MAHAD AHUJA is a 70 year old F with Atrial Fibrillation HX OF [place] LABS: Last INR: 1.4 Last HGB: 13.5 Last HCT: 41.7 Last PLT: 187 Last dose of 5 mg given on 08/03/20 at 1600 Previous Regimen: Vitamin K given: N Drug Interaction Changes: Same Interacting Drug Ongoing Drug Interactions: CITALOPRAM Discontinued citalopram. A:INR BELOW desired Range. Target Range for this patient is: 2 -3 P: Warfarin dose: 7MG Today at 1600 Bridge Therapy: None Next INR due 08/05/20 @ 0600 Pharmacy anticoagulation service will continue to follow. ALL TY RP, 08/04/20 [id number]
[2020-08-04 15:34] VITALS: BP 114/70
[2020-08-04] MEDS ORDERED: WARFARIN 1 MG TABLET. PO ONE (16:00)
[2020-08-04] MEDS ORDERED: WARFARIN 6 MG TABLET. PO ONE (16:00)
[2020-08-04] MEDS: metFORMIN XR 500 MG TAB.ER.24H PO SCH (16:52)
[2020-08-04] MEDS: ATORVASTATIN CALCIUM 20 MG TABLET PO SCH (20:18)
--- NOTE | 2020-08-04 21:55 | PDOC ---
Exam Note: Win Note: Please also refer to the separate dictated note~for this date of service dictated separately.~Patient seen individually. Discussed the patient with Nursing staff reviewed the chart.~Reviewed interim history and current functioning. Reviewed vital signs,~Labs/ Radiology~and current medications noted below. Continue current treatment with the changes noted in the dictated addendum note Assessment: Vital Signs/I&O: Vital Signs Date Time Temp Pulse Resp B/P (MAP) Pulse Ox O2 Delivery O2 Flow Rate FiO2 08/04/20 20:18 76 114/70 08/04/20 19:51 98.8 96 08/04/20 15:34 19 Room Air 08/04/20 05:44 2.0 I & O 08/03/20 08/03/20 08/04/20 15:00 23:00 07:00 Intake Total 554 ml 480 ml Balance 554 ml 480 ml Labs: Laboratory Tests Test 08/04/20 12:32 Prothrombin Time 14.8 SEC (9.4-11.4) H Prothrombin Time INR 1.4 (0.9-1.1) H Current Medications: Meds: Current Medications Medications (Trade) Dose Ordered Sig/Moris Route PRN Reason Start Time Stop Time Status Last Admin Dose Admin Warfarin Sodium (Coumadin) 6 mg 1X WARF ONCE PO 08/04/20 16:00 08/04/20 16:01 DC 08/04/20 16:53 Warfarin Sodium (Coumadin) 1 mg 1X WARF ONCE PO 08/04/20 16:00 08/04/20 16:01 DC 08/04/20 16:53 I have reviewed the current psychotropics carefully including drug interactions. Risk benefit ratio favors no change other than as noted in my dictated progress note. Diagnosis: Problems: (1) Schizophrenia, chronic condition with acute exacerbation (2) Schizoaffective disorder, bipolar type (3) Impulse control disorder, unspecified (4) Anxiety disorder, unspecified GAVIN LUCAS MD Aug 04, 2020 21:55
--- NOTE | 2020-08-04 22:06 | NUR ---
Nursing Note Pt compliant and cooperative, takes meds whole in 1 bite. Requests "chocolate puddin" for her PM snack. Smiles on approach, is pleasant, no behaviors.
[2020-08-05 05:43] VITALS: BP 124/76
[2020-08-05] MEDS: METOPROLOL TART IMMED RELEASE 25 MG TABLET PO SCH ×2 (09:00→20:38)
[2020-08-05] MEDS: POLYETHYLENE GLYCOL 3350 17 GM PACKET. PO SCH (09:03)
[2020-08-05] MEDS: buPROPion XL 150 MG TAB.ER.24H PO SCH (09:05)
[2020-08-05] MEDS: LORazepam 1 MG TABLET PO SCH ×2 (09:05→16:54)
[2020-08-05] MEDS: DIVALPROEX SODIUM 250 MG TABLET.DR. PO SCH ×3 (09:05→20:40)
[2020-08-05] MEDS: OXYBUTYNIN CHLORIDE 5 MG TABLET PO SCH (09:05)
[2020-08-05] MEDS: MAGNESIUM OXIDE 400 MG TABLET PO SCH ×2 (09:05→20:38)
[2020-08-05] MEDS: DOCUSATE SODIUM 100 MG CAPSULE PO SCH ×2 (09:05→20:39)
[2020-08-05] MEDS: HALOPERIDOL 5 MG TABLET PO SCH ×3 (09:05→20:39)
[2020-08-05] MEDS: NYSTATIN TOPICAL POWDER 15GM BOTTLE. TP SCH ×2 (09:06→20:37)
--- NOTE | 2020-08-05 10:55 | NUR ---
Nursing note: Pt sitting in her chair looking out the window when approached for morning med pass. She was compliant with meds whole floated in pudding and she was cooperative with her assessment. Pt denied having any pain. She was slightly attention seeking this AM, calling out whenever someone passed her room to be handed her Bible, cup of water, etc. She is now sleeping in her chair. Will continue to monitor.
--- NOTE | 2020-08-05 11:37 | PDOC ---
Exam Note: Win Note: This note is a late entry for 08/02/2020 covers elements not covered in my initial note. Subjective: The patient was evaluated on telehealth rounds in the evening of 08/02/2020 due to COVID-19 restrictions on the unit with no admissions and discharges. Per [place] RN in the evening, the patient slept 4-1/2 hours previous night. She has been doing better, reasonably oriented, less delusional. COVID is negative. Review of Systems: No CV, , pulmonary, eye system symptoms on review. Ambulation impaired. Mental Status Exam: Reasonably oriented. She is interactive, less delusional. Speech is coherent, has some latency. Abstraction is fair. Computation is impaired. Language function is intact. Mood and affect somewhat withdrawn. No suicidal or homicidal ideation. Laboratory Data: Reviewed. Impression: Schizoaffective disorder bipolar type mixed with psychotic features. Anxiety disorder unspecified. Impulse control disorder. Plan: No change from initial note. Assessment: Vital Signs/I&O: Vital Signs Date Time Temp Pulse Resp B/P (MAP) Pulse Ox O2 Delivery O2 Flow Rate FiO2 08/05/20 09:00 51 124/76 08/05/20 05:43 97.9 16 94 2.0 08/04/20 15:34 Room Air I & O 08/04/20 08/04/20 08/05/20 15:00 23:00 07:00 Intake Total 840 ml 600 ml Balance 840 ml 600 ml Labs: Laboratory Tests Test 08/04/20 12:32 08/05/20 06:08 Prothrombin Time 14.8 SEC (9.4-11.4) H 15.6 SEC (9.4-11.4) H Prothrombin Time INR 1.4 (0.9-1.1) H 1.5 (0.9-1.1) H Current Medications: Meds: Current Medications Medications (Trade) Dose Ordered Sig/Moris Route PRN Reason Start Time Stop Time Status Last Admin Dose Admin Warfarin Sodium (Coumadin) 6 mg 1X WARF ONCE PO 08/04/20 16:00 08/04/20 16:01 DC 08/04/20 16:53 Warfarin Sodium (Coumadin) 1 mg 1X WARF ONCE PO 08/04/20 16:00 08/04/20 16:01 DC 08/04/20 16:53 I have reviewed the current psychotropics carefully including drug interactions. Risk benefit ratio favors no change other than as noted in my dictated progress note. Diagnosis: Problems: (1) Schizophrenia, chronic condition with acute exacerbation (2) Schizoaffective disorder, bipolar type (3) Impulse control disorder, unspecified (4) Anxiety disorder, unspecified GAVIN LUCAS MD Aug 05, 2020 11:37
--- NOTE | 2020-08-05 11:46 | PDOC ---
Exam Note: Win Note: This note is a late entry for 08/03/2020 covers elements not covered in my initial note. Subjective: The patient was reviewed on telehealth rounds in the evening of 08/03/2020 with Afsaneh TORRES due to COVID-19 restrictions on the unit with no admissions and discharges. She slept 7 hours previous night. She is pleasant, cooperative. Review of Systems: No CV, , pulmonary, eye system symptoms on review. Ambulation impaired. Reliability fair. Mental Status Exam: Reasonably oriented. She is quite interactive, repeatedly asking me when she could go home. We discussed this specifically regarding COVID-19 restrictions. Speech is coherent, has some latency. Abstraction is fair. Computation is impaired. Language function is intact. Mood and affect somewhat withdrawn. No suicidal or homicidal ideation. Laboratory Data: Reviewed. Impression: Schizoaffective disorder bipolar type mixed with psychotic features. Anxiety disorder unspecified. Impulse control disorder. Plan: No change from initial note. Assessment: Vital Signs/I&O: Vital Signs Date Time Temp Pulse Resp B/P (MAP) Pulse Ox O2 Delivery O2 Flow Rate FiO2 08/05/20 09:00 51 124/76 08/05/20 05:43 97.9 16 94 2.0 08/04/20 15:34 Room Air I & O 08/04/20 08/04/20 08/05/20 15:00 23:00 07:00 Intake Total 840 ml 600 ml Balance 840 ml 600 ml Labs: Laboratory Tests Test 08/04/20 12:32 08/05/20 06:08 Prothrombin Time 14.8 SEC (9.4-11.4) H 15.6 SEC (9.4-11.4) H Prothrombin Time INR 1.4 (0.9-1.1) H 1.5 (0.9-1.1) H Current Medications: Meds: Current Medications Medications (Trade) Dose Ordered Sig/Moris Route PRN Reason Start Time Stop Time Status Last Admin Dose Admin Warfarin Sodium (Coumadin) 6 mg 1X WARF ONCE PO 08/04/20 16:00 08/04/20 16:01 DC 08/04/20 16:53 Warfarin Sodium (Coumadin) 1 mg 1X WARF ONCE PO 08/04/20 16:00 08/04/20 16:01 DC 08/04/20 16:53 I have reviewed the current psychotropics carefully including drug interactions. Risk benefit ratio favors no change other than as noted in my dictated progress note. Diagnosis: Problems: (1) Schizophrenia, chronic condition with acute exacerbation (2) Schizoaffective disorder, bipolar type (3) Impulse control disorder, unspecified (4) Anxiety disorder, unspecified GAVIN LUCAS MD Aug 05, 2020 11:45
--- NOTE | 2020-08-05 11:53 | NUR ---
Pharmacy Warfarin Dosing Note S:Pharmacy consulted to assist with anticoagulation therapy started with target INR: 2 -3 O:MAHAD AHUJA is a 70 year old F with Atrial Fibrillation HX OF [place] LABS: Last INR: 1.5 Last HGB: 13.5 Last HCT: 41.7 Last PLT: 187 Last dose of 7MG given on 08/04/20 at 1600 Previous Regimen: Vitamin K given: N Drug Interaction Changes: Same Interacting Drug Ongoing Drug Interactions: CITALOPRAM Discontinued citalopram. A:INR Below desired Range. Target Range for this patient is: 2-3 P: Warfarin dose: 7MG Today at 1600 Bridge Therapy: None Next INR due 08/06/20 @ 0600 Pharmacy anticoagulation service will continue to follow. ALL TY RP, 08/05/20 [id number]
--- NOTE | 2020-08-05 11:54 | PDOC ---
Exam Note: Win Note: This note is a late entry for 08/04/2020 covers elements not covered in my initial note. Subjective: The patient was reviewed on telehealth rounds in the evening of 08/04/2020 with Ann TORRES due to COVID-19 restrictions on the unit with no admissions and discharges. Per Ann TORRES in the evening, the patient slept 7- 1/2 hours previous night. She remains somewhat withdrawn, but pleasant again talking about wanting to go home. We addressed this. She is calmer. Review of Systems: No CV, , pulmonary, eye system symptoms on review. Ambulation impaired. Mental Status Exam: Reasonably oriented. She is calmer, withdrawn. Speech is coherent, has some latency. Abstraction is fair. Computation is impaired. Language function is intact. Mood and affect somewhat withdrawn. No suicidal or homicidal ideation. Laboratory Data: Reviewed. Impression: Schizoaffective disorder bipolar type mixed with psychotic features. Anxiety disorder unspecified. Impulse control disorder. Plan: No change from initial note. Assessment: Vital Signs/I&O: Vital Signs Date Time Temp Pulse Resp B/P (MAP) Pulse Ox O2 Delivery O2 Flow Rate FiO2 08/05/20 09:00 51 124/76 08/05/20 05:43 97.9 16 94 2.0 08/04/20 15:34 Room Air I & O 08/04/20 08/04/20 08/05/20 15:00 23:00 07:00 Intake Total 840 ml 600 ml Balance 840 ml 600 ml Labs: Laboratory Tests Test 08/04/20 12:32 08/05/20 06:08 Prothrombin Time 14.8 SEC (9.4-11.4) H 15.6 SEC (9.4-11.4) H Prothrombin Time INR 1.4 (0.9-1.1) H 1.5 (0.9-1.1) H Current Medications: Meds: Current Medications Medications (Trade) Dose Ordered Sig/Moris Route PRN Reason Start Time Stop Time Status Last Admin Dose Admin Warfarin Sodium (Coumadin) 6 mg 1X WARF ONCE PO 08/04/20 16:00 08/04/20 16:01 DC 08/04/20 16:53 Warfarin Sodium (Coumadin) 1 mg 1X WARF ONCE PO 08/04/20 16:00 9/15/20 16:01 DC 08/04/20 16:53 I have reviewed the current psychotropics carefully including drug interactions. Risk benefit ratio favors no change other than as noted in my dictated progress note. Diagnosis: Problems: (1) Schizophrenia, chronic condition with acute exacerbation (2) Schizoaffective disorder, bipolar type (3) Impulse control disorder, unspecified (4) Anxiety disorder, unspecified GAVIN LUCAS MD Aug 05, 2020 11:54
[2020-08-05 15:25] VITALS: BP 106/67
[2020-08-05] MEDS ORDERED: WARFARIN 6 MG TABLET. PO ONE (16:00)
[2020-08-05] MEDS ORDERED: WARFARIN 1 MG TABLET. PO ONE (16:00)
[2020-08-05] MEDS: metFORMIN XR 500 MG TAB.ER.24H PO SCH (16:54)
[2020-08-05] MEDS: ACETAMINOPHEN 325 MG TABLET PO PRN (17:31)
[2020-08-05] MEDS: ATORVASTATIN CALCIUM 20 MG TABLET PO SCH (20:39)
--- NOTE | 2020-08-05 21:51 | PDOC ---
Exam Note: Win Note: Please also refer to the separate dictated note~for this date of service dictated separately.~Patient seen individually. Discussed the patient with Nursing staff reviewed the chart.~Reviewed interim history and current functioning. Reviewed vital signs,~Labs/ Radiology~and current medications noted below. Continue current treatment with the changes noted in the dictated addendum note Assessment: Vital Signs/I&O: Vital Signs Date Time Temp Pulse Resp B/P (MAP) Pulse Ox O2 Delivery O2 Flow Rate FiO2 08/05/20 20:57 97.5 94 08/05/20 20:38 79 110/70 08/05/20 15:25 19 Room Air 08/05/20 05:43 2.0 I & O 08/04/20 08/04/20 08/05/20 15:00 23:00 07:00 Intake Total 840 ml 600 ml Balance 840 ml 600 ml Labs: Laboratory Tests Test 08/05/20 06:08 Prothrombin Time 15.6 SEC (9.4-11.4) H Prothrombin Time INR 1.5 (0.9-1.1) H Current Medications: Meds: Current Medications Medications (Trade) Dose Ordered Sig/Moris Route PRN Reason Start Time Stop Time Status Last Admin Dose Admin Warfarin Sodium (Coumadin) 6 mg 1X WARF ONCE PO 08/05/20 16:00 08/05/20 16:01 DC 08/05/20 16:54 Warfarin Sodium (Coumadin) 1 mg 1X WARF ONCE PO 08/05/20 16:00 08/05/20 16:01 DC 08/05/20 16:54 I have reviewed the current psychotropics carefully including drug interactions. Risk benefit ratio favors no change other than as noted in my dictated progress note. Diagnosis: Problems: (1) Schizophrenia, chronic condition with acute exacerbation (2) Schizoaffective disorder, bipolar type (3) Impulse control disorder, unspecified (4) Anxiety disorder, unspecified GAVIN LUCAS MD Aug 05, 2020 21:51
[2020-08-06 05:58] VITALS: BP 126/75
[2020-08-06] MEDS: POLYETHYLENE GLYCOL 3350 17 GM PACKET. PO SCH (07:35)
[2020-08-06] MEDS: MAGNESIUM OXIDE 400 MG TABLET PO SCH ×2 (07:36→20:03)
[2020-08-06] MEDS: OXYBUTYNIN CHLORIDE 5 MG TABLET PO SCH (07:36)
[2020-08-06] MEDS: DOCUSATE SODIUM 100 MG CAPSULE PO SCH (07:36)
[2020-08-06] MEDS: DIVALPROEX SODIUM 250 MG TABLET.DR. PO SCH ×3 (07:36→20:03)
[2020-08-06] MEDS: HALOPERIDOL 5 MG TABLET PO SCH ×3 (07:36→20:01)
[2020-08-06] MEDS: METOPROLOL TART IMMED RELEASE 25 MG TABLET PO SCH ×2 (07:37→20:02)
[2020-08-06] MEDS: buPROPion XL 150 MG TAB.ER.24H PO SCH (07:37)
[2020-08-06] MEDS: CHOLECALCIFEROL (VITAMIN D3) 50,000 UNIT CAPSULE PO SCH (07:46)
[2020-08-06] MEDS: LORazepam 1 MG TABLET PO SCH ×2 (07:46→16:43)
[2020-08-06] MEDS: NYSTATIN TOPICAL POWDER 15GM BOTTLE. TP SCH ×2 (07:46→20:05)
--- NOTE | 2020-08-06 11:17 | NUR ---
Nursing note: Pt in her room for morning meds and assessment. She was pleasant, med compliant, and cooperative. Pt had no complaints at time of assessment and denied having any pain. She is currently asleep in her chair. Will continue to monitor.
--- NOTE | 2020-08-06 13:03 | NUR ---
YINKA contacted Pauly at [facility] to let her know that so far so good. We have 3 more staff results that are pending and should be back tonight. Pt had her first completed with a negative and are awaiting the results of her 2nd negative. YINKA will plan to have pt discharge tentatively tomorrow afternoon in which she agreed would be just fine. YINKA will send updated notes for them to review and get back to YINKA with a discharge time.
--- NOTE | 2020-08-06 13:08 | NUR ---
YINKA contacted pt Public Sommelier, Lara, to inform her that pt will not be tentatively quarantining tomorrow afternoon. We are waiting on a few Covid results and trying to get those back prior to discharge. If all works out, pt will be back to [facility] sometime tomorrow afternoon. If anything changes, YINKA will call Lara back.
--- NOTE | 2020-08-06 15:12 | NUR ---
Pharmacy Warfarin Dosing Note S:Pharmacy consulted to assist with anticoagulation therapy started with target INR: 2 -3 O:MAHAD AHUJA is a 70 year old F with Atrial Fibrillation HX OF [place] LABS: Last INR: 1.8 Last HGB: 13.5 Last HCT: 41.7 Last PLT: 205 Last dose of 7MG given on 08/05/20 at 1654 Drug Interaction Changes: None A:INR Below desired Range. Target Range for this patient is: 2 -3 P: Warfarin dose: 7MG Today at 1600 Bridge Therapy: None Next INR due 08/07/20 AM Pharmacy anticoagulation service will continue to follow. ALL TAMEZ RPH, 08/06/20 0637
[2020-08-06] MEDS ORDERED: WARFARIN 6 MG TABLET. PO ONE (16:00)
[2020-08-06] MEDS ORDERED: WARFARIN 1 MG TABLET. PO ONE (16:00)
[2020-08-06 16:28] VITALS: BP 115/72
[2020-08-06] MEDS: metFORMIN XR 500 MG TAB.ER.24H PO SCH (16:43)
--- NOTE | 2020-08-06 17:01 | NUR ---
[facility] Social Work Discharge Planning Form Patient Name MAHAD AHUJA Admit Date: 07/15/2020 DISCHARGE PLAN Discharge Destination: Pt to discharge back to [facility] Care Assessment: N/A Level II Assessment: N/A Transportation: Pt facility to pick pt up Monday afternoon; Will need 2nd/final Covid test faxed over before transport will pick pt up. Special Instructions/Notes: Please fax over all discharge medications, discharge orders and discharge summary to the fax numbers listed below. Pt x-rays/scans were discussed with all parties. Pt is to return to [facility] and they will reach out to the specialist to discuss pt results and potential for knee reconstructive surgery. ALL FILMS WILL NEED TO BE SEND TO THE FACILITY!! DISCHARGE TO FACILITY Facility: [facility] Address: [address] [place] [id number] Contact Name: Saad [Pantograph Setter]: Contact Name: Farooq Serrato PCP: Dalton Haskins Public Landscape Nurseryman: Lara Munoz Address: [address] [place] [address] [phone]
[2020-08-06] MEDS: ATORVASTATIN CALCIUM 20 MG TABLET PO SCH (20:02)
--- NOTE | 2020-08-06 21:51 | PDOC ---
Exam Note: Win Note: Please also refer to the separate dictated note~for this date of service dictated separately.~Patient seen individually. Discussed the patient with Nursing staff reviewed the chart.~Reviewed interim history and current functioning. Reviewed vital signs,~Labs/ Radiology~and current medications noted below. Continue current treatment with the changes noted in the dictated addendum note Assessment: Vital Signs/I&O: Vital Signs Date Time Temp Pulse Resp B/P (MAP) Pulse Ox O2 Delivery O2 Flow Rate FiO2 08/06/20 20:02 69 115/72 08/06/20 16:28 98.2 18 97 08/05/20 15:25 Room Air 08/05/20 05:43 2.0 I & O 08/05/20 08/05/20 08/06/20 15:00 23:00 07:00 Intake Total 700 ml 600 ml Balance 700 ml 600 ml Labs: Laboratory Tests Test 08/06/20 05:45 Prothrombin Time 18.3 SEC (9.4-11.4) H Prothrombin Time INR 1.8 (0.9-1.1) H Current Medications: Meds: Current Medications Medications (Trade) Dose Ordered Sig/Moris Route PRN Reason Start Time Stop Time Status Last Admin Dose Admin Warfarin Sodium (Coumadin) 6 mg 1X WARF ONCE PO 08/06/20 16:00 08/06/20 16:01 DC 08/06/20 16:43 Warfarin Sodium (Coumadin) 1 mg 1X WARF ONCE PO 08/06/20 16:00 08/06/20 16:01 DC 08/06/20 16:43 Docusate Sodium (Colace) 100 mg DAILY PO 08/07/20 09:00 08/06/20 20:02 I have reviewed the current psychotropics carefully including drug interactions. Risk benefit ratio favors no change other than as noted in my dictated progress note. Diagnosis: Problems: (1) Schizophrenia, chronic condition with acute exacerbation (2) Schizoaffective disorder, bipolar type (3) Impulse control disorder, unspecified (4) Anxiety disorder, unspecified GAVIN LUCAS MD Aug 06, 2020 21:51
--- NOTE | 2020-08-06 23:32 | NUR ---
At HS med pass pt was awake in bed and was pleasant social and cooperative. Meds were taken whole floated in pudding. She is looking forward to planned discharge tomorrow. She has had no behaviors tonight.
[2020-08-07 06:16] VITALS: BP 116/76
--- NOTE | 2020-08-07 06:31 | PDOC ---
Exam Note: Win Note: This note is a late entry for 08/05/2020 covers elements not covered in my initial note. Subjective: The patient was reviewed on telehealth rounds due to COVID-19 restrictions on the unit in the evening of 08/05/2020 with Ann TORRES. Per Ann RN, the patient slept 6-1/4 hours previous night. She has been fairly pleasant, cooperative, withdrawn, wanting to go home, delusions seems to have subsided. Review of Systems: No CV, , eye system symptoms on review. Ambulation impaired. She has some constipation. Mental Status Exam: Reasonably oriented. She is pleasant, cooperative, withdrawn. Speech is coherent, has some latency. Abstraction is fair. Computation is impaired. Language function is intact. Mood and affect somewhat withdrawn. No suicidal or homicidal ideation. Laboratory Data: Reviewed. Impression: Schizoaffective disorder bipolar type mixed with psychotic features. Anxiety disorder unspecified. Impulse control disorder. Plan: No change from initial note. We will defer to Dr. Sexton/Dr. Parker to treat constipation. Assessment: Vital Signs/I&O: Vital Signs Date Time Temp Pulse Resp B/P (MAP) Pulse Ox O2 Delivery O2 Flow Rate FiO2 08/07/20 06:16 98.1 58 16 116/76 (89) 95 Nasal Cannula 1.0 I & O 08/06/20 08/06/20 08/07/20 15:00 23:00 07:00 Intake Total 360 ml 340 ml Balance 360 ml 340 ml Labs: Laboratory Tests Test 08/07/20 05:55 Prothrombin Time 23.4 SEC (9.4-11.4) H Prothrombin Time INR 2.3 (0.9-1.1) H Current Medications: Meds: Current Medications Medications (Trade) Dose Ordered Sig/Moris Route PRN Reason Start Time Stop Time Status Last Admin Dose Admin Warfarin Sodium (Coumadin) 6 mg 1X WARF ONCE PO 08/06/20 16:00 08/06/20 16:01 DC 08/06/20 16:43 Warfarin Sodium (Coumadin) 1 mg 1X WARF ONCE PO 08/06/20 16:00 08/06/20 16:01 DC 08/06/20 16:43 Docusate Sodium (Colace) 100 mg DAILY PO 08/07/20 09:00 08/06/20 20:02 I have reviewed the current psychotropics carefully including drug interactions. Risk benefit ratio favors no change other than as noted in my dictated progress note. Diagnosis: Problems: (1) Schizophrenia, chronic condition with acute exacerbation (2) Schizoaffective disorder, bipolar type (3) Impulse control disorder, unspecified (4) Anxiety disorder, unspecified GAVIN LUCAS MD Aug 07, 2020 06:31
--- NOTE | 2020-08-07 06:40 | PDOC ---
Exam Note: Win Note: This note is a late entry for 08/06/2020 covers elements not covered in my initial note. Subjective: The patient was reviewed on telehealth rounds due to COVID-19 restrictions on the unit in the morning of 08/06/2020 with treatment team with Araceli King and Marilu (psychologist social) and Ann TORRES. Per Ann RN in the evening on telehealth rounds, the patient slept 7-1/2 hours previous night. She has been doing quite well per nursing staff, somewhat flirting with staff member. Review of Systems: She is still distressed with the constipation. No CV, system symptoms on review. Ambulation impaired. Mental Status Exam: She is awake, alert, and oriented. She is quite verbal i nteractive, still fixated on going home. Speech is coherent, has some latency. Abstraction is fair. Computation is impaired. Language function is intact. Mood and affect somewhat withdrawn. No suicidal or homicidal ideation. Laboratory Data: Reviewed. Impression: Schizoaffective disorder bipolar type mixed with psychotic features. Anxiety disorder unspecified. Impulse control disorder. Plan: We will discharge the patient tomorrow and we will start her on Surfak 240 mg a day for constipation. Assessment: Vital Signs/I&O: Vital Signs Date Time Temp Pulse Resp B/P (MAP) Pulse Ox O2 Delivery O2 Flow Rate FiO2 08/07/20 06:16 98.1 58 16 116/76 (89) 95 Nasal Cannula 1.0 I & O 08/06/20 08/06/20 08/07/20 15:00 23:00 07:00 Intake Total 360 ml 340 ml Balance 360 ml 340 ml Labs: Laboratory Tests Test 08/07/20 05:55 Prothrombin Time 23.4 SEC (9.4-11.4) H Prothrombin Time INR 2.3 (0.9-1.1) H Current Medications: Meds: Current Medications Medications (Trade) Dose Ordered Sig/Moris Route PRN Reason Start Time Stop Time Status Last Admin Dose Admin Warfarin Sodium (Coumadin) 6 mg 1X WARF ONCE PO 08/06/20 16:00 08/06/20 16:01 DC 08/06/20 16:43 Warfarin Sodium (Coumadin) 1 mg 1X WARF ONCE PO 08/06/20 16:00 08/06/20 16:01 DC 08/06/20 16:43 Docusate Sodium (Colace) 100 mg DAILY PO 08/07/20 09:00 08/06/20 20:02 I have reviewed the current psychotropics carefully including drug interactions. Risk benefit ratio favors no change other than as noted in my dictated progress note. Diagnosis: Problems: (1) Schizophrenia, chronic condition with acute exacerbation (2) Schizoaffective disorder, bipolar type (3) Impulse control disorder, unspecified (4) Anxiety disorder, unspecified GAVIN LUCAS MD Aug 07, 2020 06:40
[2020-08-07] MEDS: DIVALPROEX SODIUM 250 MG TABLET.DR. PO SCH ×2 (08:03→13:39)
[2020-08-07 08:04] VITALS: BP 116/76
[2020-08-07] MEDS: POLYETHYLENE GLYCOL 3350 17 GM PACKET. PO SCH (08:04)
[2020-08-07] MEDS: METOPROLOL TART IMMED RELEASE 25 MG TABLET PO SCH (08:04)
[2020-08-07] MEDS: buPROPion XL 150 MG TAB.ER.24H PO SCH (08:04)
[2020-08-07] MEDS: MAGNESIUM OXIDE 400 MG TABLET PO SCH (08:05)
[2020-08-07] MEDS: NYSTATIN TOPICAL POWDER 15GM BOTTLE. TP SCH (08:05)
[2020-08-07] MEDS: OXYBUTYNIN CHLORIDE 5 MG TABLET PO SCH (08:05)
[2020-08-07] MEDS: HALOPERIDOL 5 MG TABLET PO SCH ×2 (08:05→11:31)
[2020-08-07] MEDS: LORazepam 1 MG TABLET PO SCH (08:06)
[2020-08-07] MEDS ORDERED: DOCUSATE SODIUM 100 MG CAPSULE PO SCH (09:00)
--- NOTE | 2020-08-07 12:25 | NUR ---
Transition Record was faxed to follow-up provider with the following elements: Reason for admission, procedures, tests, principal diagnosis, pending studies, patient instructions, 12/06 contact information for unit, phone number to obtain pending test results, plan for follow-up care, physician follow-up, advanced directive information, and medication list with dose, duration and instructions. This information was included in the following documents: History and physical, lab results, study results, progress notes, social work planning form, DC instruction form, patient visit summary, and medication reconciliation form. Date & time record faxed: 08/07/2020 AT 0130 Record faxed to: [facility] Record discussed with/ report given to:[facility] - SHANTI TORRES AT [id number]
--- NOTE | 2020-08-07 14:40 | NUR ---
Pharmacy Warfarin Dosing Note S:Pharmacy consulted to assist with anticoagulation therapy started with target INR: 2 -3 O:MAHAD AHUJA is a 70 year old F with Atrial Fibrillation HX OF [place] LABS: Last INR: 2.3 Last HGB: 13.5 Last HCT: 41.7 Last PLT: 205 Last dose of 7MG given on 08/06/20 at 1643 Vitamin K given: N Drug Interaction Changes: None A:INR within desired Range: 2 -3. P: Warfarin dose: 6 mg today prior to planned discharge at 1500. Bridge Therapy: None Pharmacy anticoagulation service will continue to follow. ELIJAH MCKINNEY, 08/07/20 [id number]
[2020-08-07] MEDS ORDERED: WARFARIN 6 MG TABLET. PO ONE (14:45)
--- NOTE | 2020-08-07 21:54 | PDOC ---
Exam Note: Win Note: Please also refer to the separate dictated note~for this date of service dictated separately.~Patient seen individually. Discussed the patient with Nursing staff reviewed the chart.~Reviewed interim history and current functioning. Reviewed vital signs,~Labs/ Radiology~and current medications noted below. Continue current treatment with the changes noted in the dictated addendum note Assessment: Vital Signs/I&O: Vital Signs Date Time Temp Pulse Resp B/P (MAP) Pulse Ox O2 Delivery O2 Flow Rate FiO2 08/07/20 08:04 58 116/76 08/07/20 06:16 98.1 16 95 Nasal Cannula 1.0 I & O 08/06/20 08/06/20 08/07/20 15:00 23:00 07:00 Intake Total 360 ml 340 ml Balance 360 ml 340 ml Labs: Laboratory Tests Test 08/07/20 05:55 Prothrombin Time 23.4 SEC (9.4-11.4) H Prothrombin Time INR 2.3 (0.9-1.1) H Current Medications: Meds: Current Medications Medications (Trade) Dose Ordered Sig/Moris Route PRN Reason Start Time Stop Time Status Last Admin Dose Admin Docusate Sodium (Colace) 100 mg DAILY PO 08/07/20 09:00 08/07/20 15:37 DC 08/06/20 20:02 Warfarin Sodium (Coumadin) 6 mg 1X WARF ONCE PO 08/07/20 14:45 08/07/20 14:46 DC 08/07/20 14:40 I have reviewed the current psychotropics carefully including drug interactions. Risk benefit ratio favors no change other than as noted in my dictated progress note. Diagnosis: Problems: (1) Schizophrenia, chronic condition with acute exacerbation (2) Schizoaffective disorder, bipolar type (3) Impulse control disorder, unspecified (4) Anxiety disorder, unspecified GAVIN LUCAS MD Aug 07, 2020 21:54
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
== END 2020-08-07 15:36 | DRG 885 ==
LOC: GEROPSY 13:27
PROVIDERS: ADMIT Psychiatry & Neurology Psychiatry; ATTEND Psychiatry & Neurology Psychiatry
DX: F25.0 Schizoaffective disorder, bipolar type (principal); E43 Unspecified severe protein-calorie malnutrition; J96.10 Chronic respiratory failure, unspecified whether with hypoxia or hypercapnia; Z68.41 Body mass index [BMI] 40.0-44.9, adult; E78.5 Hyperlipidemia, unspecified; F41.9 Anxiety disorder, unspecified; F63.9 Impulse disorder, unspecified; G47.00 Insomnia, unspecified; G89.29 Other chronic pain; I10 Essential (primary) hypertension; I25.10 Atherosclerotic heart disease of native coronary artery without angina pectoris; I25.2 Old myocardial infarction; I48.91 Unspecified atrial fibrillation; J44.9 Chronic obstructive pulmonary disease, unspecified; K59.00 Constipation, unspecified; W07.XXXA Fall from chair, initial encounter; Z79.01 Long term (current) use of anticoagulants; Z79.899 Other long term (current) drug therapy; Z91.81 History of falling; Z96.652 Presence of left artificial knee joint; Z98.41 Cataract extraction status, right eye; Z98.42 Cataract extraction status, left eye; E66.01 Morbid (severe) obesity due to excess calories; F29 Unspecified psychosis not due to a substance or known physiological condition; G47.33 Obstructive sleep apnea (adult) (pediatric); K21.9 Gastro-esophageal reflux disease without esophagitis; D64.9 Anemia, unspecified; K59.09 Other constipation; M19.90 Unspecified osteoarthritis, unspecified site; Z20.828 Contact with and (suspected) exposure to other viral communicable diseases; Z88.8 Allergy status to other drugs, medicaments and biological substances
CPT/HCPCS: 36415; 70450; 71045; 73560; 80053; 80061; 80164; 81001; 82306; 82607; 83036; 83540; 83550; 83735; 84436; 84443; 84480; 85025; 85610; 86592; 87086; 87426; U0003-CS